=== PATIENT | female | born 1935 | race Caucasian/White ===

== ENCOUNTER 2019-01-09 16:32 | Inpatient (IN) | payer OTHER ==
[2019-01-09 17:01] LABS: Absolute Lymphocytes (CBC) 0.9 K/uL (0.7-4.9); Absolute Monocytes 0.4 K/uL (0.1-1.3); Absolute Neutrophil 6.2 K/uL (1.8-8.0); Basophils % 0.7 % (0-1.3); Hematocrit 28.4 % (36.0-45.0); Lymphocytes % 12.1 % (15.3-44.8); MPV 7.3 fL (7.6-11.3); Monocytes % 5.2 % (3.3-12.3); RBC Red Blood Cell Count 3.57 M/uL (3.86-4.86)
[2019-01-09 17:06] LABS: Protime INR 1.01
[2019-01-09] MEDS ORDERED: FENTANYL CITR 100 MCG/2 ML ONE (17:07)
[2019-01-09 17:23] LABS: BUN Blood Urea Nitrogen 12 mg/dL (7-18); Bicarbonate 27 mmol/L (21-32); Glucose Level 101 mg/dL (74-106); NT PRO-BNP 233 pg/mL (<450); Sodium Level 138 mmol/L (136-145); Troponin (Emerg Dept Use Only) < 0.02 ng/mL (0.0-0.045)
--- NOTE | 2019-01-09 18:23 | EKG ---
Test Date: 2019-01-09 Test Time: 16:53:26 [employer]: KATHERINE MEASUREMENT RESULTS: Intervals: Rate: 94 RI: 162 QRSD: 62 QT: 378 QTc: 472 [place]: P: 84 RI: 162 QRS: 78 T: 65 INTERPRETIVE STATEMENTS: Normal sinus rhythm Normal ECG Compared to ECG 09/08/2017 12:01:19 ST (T wave) deviation now present Electronically Signed On 01-09-19 18:22:39 CDT by Russ Williamson
[2019-01-09] MEDS ORDERED: ACETAMINOPHEN 500 MG TAB PO PRN (18:31)
--- NOTE | 2019-01-09 18:33 | EDPHYS ---
Physician Documentation [facility] Name: Sumaya Starr Age: 83 yrs Sex: Female : 1935 Arrival Date: 01/09/2019 Time: 16:34 Bed 19 Private MD: ED Physician Catrachito Perez HPI: 01/09 16:45 This 83 yrs old Female presents to ER via EMS with complaints of Fall Injury. cp Historical: - Allergies: 16:37 Benicar; hj 16:37 BETA-ADRENERGIC BLOCKING AGENTS; hj 16:37 Demerol; hj 16:37 Peanut; hj 16:37 Latex, Natural Rubber; hj 16:37 Adhesives; hj - Home Meds: 16:37 citalopram 10 mg tab 1 tab once daily [Active]; Lasix 20 mg Oral tab 1 tab once daily hj [Active]; Miralax 17 gram/dose Oral powd once daily [Active]; hydrocodone-acetaminophen 5-325 mg oral tab 1 tab every 4-6 hours [Active]; Zofran Oral [Active]; Klor-Con 10 10 mEq Oral TbER 1 tab once daily [Active]; Xarelto 10 mg Oral tab 1 tab once daily [Active]; Klonopin 1 mg Oral tab 1 tab nightly [Active]; melatonin 10 mg Oral tab daily [Active]; Lumigan 0.03 % ophthalmic drop 1 drop once daily [Active]; - PMHx: 16:37 AAA; Anemia; Atrial Fib; GI Bleed; Glaucoma; Hypertension; kidney infection; macular hj degeneration; UTI; - PSHx: 16:37 Carotid surgery; pyloriplasty; Cholecystectomy; hj - Immunization history:: Adult Immunizations up to date. - Social history:: Smoking status: Patient/guardian denies using tobacco, Patient/guardian denies using alcohol. - Immunization history: Last tetanus immunization: - up to date. - Ebola Screening: : Patient negative for fever greater than or equal to 101.5 degrees Fahrenheit, and additional compatible Ebola Virus Disease symptoms Patient denies exposure to infectious person Patient denies travel to an Ebola-affected area in the 21 days before illness onset. ROS: 16:50 Constitutional: Negative for body aches, chills, fever, poor PO intake. cp 16:50 Eyes: Negative for injury, pain, redness, and discharge. cp 16:50 ENT: Negative for drainage from ear(s), ear pain, sore throat, difficulty swallowing, difficulty handling secretions. 16:50 Cardiovascular: Negative for chest pain, edema, palpitations. 16:50 Respiratory: Negative for cough, shortness of breath, wheezing. 16:50 Abdomen/GI: Negative for abdominal pain, nausea, vomiting, and diarrhea, black/tarry stool, rectal bleeding. 16:50 Back: Negative for pain at rest. 16:50 MS/extremity: Positive for decreased range of motion, pain, tenderness, of the left hip, Negative for paresthesias. 16:50 Skin: Negative for rash. 16:50 Neuro: Negative for altered mental status, headache, loss of consciousness, syncope, weakness. 16:50 All other systems are negative. Exam: 17:00 Head/Face: Normocephalic, atraumatic. cp 17:00 Constitutional: The patient appears in no acute distress, alert, awake, non-diaphoretic, non-toxic, well developed, frail, in obvious pain, uncomfortable. 17:00 Eyes: Periorbital structures: appear normal, Pupils: equal, round, and reactive to light and accomodation, Extraocular movements: intact throughout, Conjunctiva: normal, no exudate, no injection, Lids and lashes: appear normal, bilaterally. 17:00 ENT: External ear(s): are unremarkable, Ear canal(s): are normal, clear, TM's: bulging, is not appreciated, bilaterally, dullness, bilaterally, erythema, is not appreciated, bilaterally, Nose: is normal, Mouth: Lips: moist, Oral mucosa: moist, Posterior pharynx: Airway: no evidence of obstruction, patent. 17:00 Neck: C-spine: vertebral tenderness, is not appreciated, crepitus, is not appreciated, ROM/movement: pain, is not appreciated, limited range of motion, is not appreciated, nuchal rigidity, is not appreciated. 17:00 Chest/axilla: Inspection: normal, Palpation: is normal, no crepitus, no tenderness. 17:00 Cardiovascular: Rate: normal, Rhythm: regular, Edema: is not appreciated, JVD: is not appreciated. 17:00 Respiratory: the patient does not display signs of respiratory distress, Respirations: normal, no use of accessory muscles, no retractions, no splinting, no tachypnea, labored breathing, is not present, Breath sounds: are clear throughout, no decreased breath sounds, no stridor, no wheezing. 17:00 Abdomen/GI: Inspection: abdomen appears normal, Bowel sounds: active, all quadrants, Palpation: abdomen is soft and non-tender, in all quadrants. 17:00 Back: vertebral tenderness, is not appreciated. 17:00 Musculoskeletal/extremity: Extremities: grossly normal except: noted in the left hip: decreased ROM, pain, tenderness, Pulses: noted to be 2+ in the right radial artery, right dorsalis pedis artery, left radial artery and left dorsalis pedis artery, Sensation intact. 17:00 Neuro: Orientation: to person, place \T\ time. Mentation: is normal, Motor: moves all fours, strength is normal, Sensation: is normal. 17:00 Skin: no rash present. 17:05 ECG was reviewed by the Attending Physician. Vital Signs: 16:38 BP 201 / 76; Pulse 97; Resp 18; Temp 98.1(TE); Pulse Ox 99% on R/A; Weight 49.9 kg; Height 5 ft. 0 in. (152.40 cm); Pain 10/10; 16:56 BP 187 / 73; Pulse 94; Resp 16 S; Pulse Ox 99% on R/A; aa5 18:19 BP 100 / 83; Pulse 88; Resp 18; Pulse Ox 100% on 2 lpm NC; hj 18:40 BP 191 / 80; Pulse 94; Resp 18; Pulse Ox 100% on 2 lpm NC; hj 20:45 BP 156 / 77; Pulse 95; Resp 18; Temp 97.5(TE); Pulse Ox 96% on 2 lpm NC; Pain 6/10; ed1 16:38 Body Mass Index 21.48 (49.90 kg, 152.40 cm) Daniel Coma Score: 16:41 Eye Response: spontaneous(4). Verbal Response: oriented(5). Motor Response: obeys commands(6). Total: 15. Trauma Score (Adult): 16:41 Eye Response: spontaneous(1); Verbal Response: oriented(1); Motor Response: obeys commands(2); Systolic BP: > 89 mm Hg(4); Respiratory Rate: 10 to 29 per min(4); Milton Score: 15; Trauma Score: 12 MDM: 16:38 Patient medically screened. cp 17:00 Differential diagnosis: closed head injury, contusion, fracture, multiple trauma, cp dislocation. 18:15 Data reviewed: vital signs, nurses notes, lab test result(s), EKG, radiologic studies, cp plain films. Test interpretation: by ED physician or midlevel provider: ECG, plain radiologic studies, xrays of left femur show subcapital fracture. 18:16 Physician consultation: Mago Srivastava MD was called at 18:16, was contacted at 18:16, cp regarding admission, to the telemetry unit. patient's condition. 18:18 Physician consultation: Jerald Willams MD was called at 18:18, was contacted at 18:18, cp regarding consult, patient's condition, would like admission per Dr. Mago Srivastava MD. 01/09 16:37 Order name: Basic Metabolic Panel; Complete Time: 17:30 cp 01/09 17:31 Interpretation: Normal except: GFR 63. 01/09 16:37 Order name: CBC with Diff; Complete Time: 17:30 cp 01/09 17:30 Interpretation: Normal except: RBC 3.57; HGB 9.2; HCT 28.4; MCV 79.3; MCH 25.7; RDW cp 15.8; MPV 7.3; MICHELLE% 81.0; LYM% 12.1. 01/09 16:37 Order name: NT PRO-BNP; Complete Time: 17:30 cp 01/09 16:37 Order name: PT-INR; Complete Time: 17:30 cp 01/09 16:37 Order name: Troponin (emerg Dept Use Only); Complete Time: 17:30 cp 01/09 16:37 Order name: Ptt, Activated; Complete Time: 17:30 cp 01/09 16:37 Order name: XRAY Chest (1 view); Complete Time: 18:48 cp 01/09 16:37 Order name: XRAY Pelvis; Complete Time: 18:48 cp 01/09 16:37 Order name: XRAY Femur LEFT; Complete Time: 18:48 cp 01/09 16:37 Order name: CT Traumagram (Head C Spine CAP W Con); Complete Time: 18:48 cp 01/09 18:14 Order name: XRAY Hip LEFT 2 view cp 05/15 19:26 Order name: RAD; Complete Time: 21:03 EDMS 01/09 20:00 Order name: Magnesium; Complete Time: 21:03 EDMS 01/09 16:37 Order name: EKG; Complete Time: 16:43 cp 01/09 16:37 Order name: Cardiac monitoring; Complete Time: 16:44 cp 01/09 16:37 Order name: EKG - Nurse/Tech; Complete Time: 16:52 cp 01/09 16:37 Order name: IV Saline Lock; Complete Time: 16:52 cp 01/09 16:37 Order name: Labs collected and sent; Complete Time: 16:52 cp 01/09 16:37 Order name: O2 Per Protocol; Complete Time: 16:43 cp 01/09 16:37 Order name: O2 Sat Monitoring; Complete Time: 16:43 cp 01/09 16:38 Order name: Chiu: if hip fractured; Complete Time: 21:02 cp 01/09 18:37 Order name: CONS Physician Consult EDMS EC:05 Rate is 94 beats/min. Rhythm is regular. NJ interval is normal. QRS interval is normal. cp QT interval is normal. Interpreted by me. Reviewed by me. Administered Medications: 16:55 Drug: fentaNYL (PF) 25 mcg Route: IVP; Site: right antecubital; aa5 17:20 Follow up: Response: No adverse reaction; Pain is decreased hj 17:26 Drug: fentaNYL (PF) 25 mcg Route: IVP; Site: right antecubital; hj 17:45 Follow up: Response: No adverse reaction; Pain is decreased hj 18:35 Drug: fentaNYL (PF) 25 mcg Route: IVP; Site: right antecubital; hj 18:35 Follow up: Response: No adverse reaction hj 18:37 Follow up: Response: No adverse reaction; Pain is decreased hj 19:37 Drug: morphine 2 mg {Note: Given per admission orders.} Route: IVP; Site: right ed1 antecubital; 21:02 Follow up: Response: No adverse reaction; Pain is unchanged, physician notified ed1 20:30 Drug: LORazepam 0.5 mg {Note: Per admission orders.} Route: IVP; Site: right ed1 antecubital; 21:02 Follow up: Response: No adverse reaction; Anxiety decreased ed1 Disposition: 01/09/19 18:33 Hospitalization ordered by Mago Srivastava for Inpatient Admission. Preliminary diagnosis are Fall on same level from slipping, tripping and stumbling, Left hip fracture. - Bed requested for Telemetry/MedSurg (Inpatient). - Status is Inpatient Admission. ed1 - Condition is Stable. - Problem is new. - Symptoms have improved. UTI on Admission? No Addendum: 01/14/2019 07:57 Co-signature as Attending Physician, Catrachito Perez MD. r n Signatures: Dispatcher [employer] EDMS Catrachito Perez MD MD rn Calderon, Audri RN RN aa5 Marti Castillo RN RN ed1 Luan Frias RN RN Nabor Sandoval PA PA Jordyn Parekh mw2 Corrections: (The following items were deleted from the chart) 01/09 19:33 18:33 Hospitalization Ordered by Mago Srivastava MD for Inpatient Admission. Preliminary mw2 diagnosis is Fall on same level from slipping, tripping and stumbling; Left hip fracture. Bed requested for Telemetry/MedSurg (Inpatient). Status is Inpatient Admission. Condition is Stable. Problem is new. Symptoms have improved. UTI on Admission? No. cp 21:22 19:33 01/09/2019 18:33 Hospitalization Ordered by Mago Srivastava MD for Inpatient ed1 Admission. Preliminary diagnosis is Fall on same level from slipping, tripping and stumbling; Left hip fracture. Bed requested for Telemetry/MedSurg (Inpatient). Status is Inpatient Admission. Condition is Stable. Problem is new. Symptoms have improved. UTI on Admission? No. mw2
--- NOTE | 2019-01-09 18:33 | ER ---
Nurse's Notes [facility] Name: Sumaya Starr Age: 83 yrs Sex: Female : 1935 Arrival Date: 01/09/2019 Time: 16:34 Bed 19 Private MD: Diagnosis: Fall on same level from slipping, tripping and stumbling;Left hip fracture Presentation: 01/09 16:35 Presenting complaint: EMS states: from home, pt tripped and fell and hurt her L hip and hj L upper leg; denies hitting head and LOC; unable to extend L leg; morphine 4 mg given at 1535; 20 g R AC;. Transition of care: patient was not received from another setting of care. Onset of symptoms was January 09, 2019. Risk Assessment: Do you want to hurt yourself or someone else? Patient reports no desire to harm self or others. Initial Sepsis Screen: Does the patient meet any 2 criteria? No. Patient's initial sepsis screen is negative. Does the patient have a suspected source of infection? No. Patient's initial sepsis screen is negative. Care prior to arrival: None. 16:35 Method Of Arrival: EMS: [facility] 16:35 Acuity: MARY 4 hj 16:35 Mechanism of Injury: Fall from standing position. Trauma event details: Injury occurred hj in the [facility], Injury occurred: at home. Injury occurred: January 09, 2019 Injury occurred at: 15:45. Triage Assessment: 16:41 General: Appears in no apparent distress. uncomfortable, Behavior is cooperative, hj appropriate for age, anxious. Pain: Complains of pain in L lip, L upper extremity. Trauma Activation: Not Applicable Physician: ED Physician; Name: ; Notified At: ; Arrived At: Physician: General Surgeon; Name: ; Notified At: ; Arrived At: Physician: Radiology; Name: ; Notified At: ; Arrived At: Physician: Respiratory; Name: ; Notified At: ; Arrived At: Physician: Lab; Name: ; Notified At: ; Arrived At: Historical: - Allergies: 16:37 Benicar; hj 16:37 BETA-ADRENERGIC BLOCKING AGENTS; hj 16:37 Demerol; hj 16:37 Peanut; hj 16:37 Latex, Natural Rubber; hj 16:37 Adhesives; hj - Home Meds: 16:37 citalopram 10 mg tab 1 tab once daily [Active]; Lasix 20 mg Oral tab 1 tab once daily hj [Active]; Miralax 17 gram/dose Oral powd once daily [Active]; hydrocodone-acetaminophen 5-325 mg oral tab 1 tab every 4-6 hours [Active]; Zofran Oral [Active]; Klor-Con 10 10 mEq Oral TbER 1 tab once daily [Active]; Xarelto 10 mg Oral tab 1 tab once daily [Active]; Klonopin 1 mg Oral tab 1 tab nightly [Active]; melatonin 10 mg Oral tab daily [Active]; Lumigan 0.03 % ophthalmic drop 1 drop once daily [Active]; - PMHx: 16:37 AAA; Anemia; Atrial Fib; GI Bleed; Glaucoma; Hypertension; kidney infection; macular hj degeneration; UTI; - PSHx: 16:37 Carotid surgery; pyloriplasty; Cholecystectomy; hj - Immunization history:: Adult Immunizations up to date. - Social history:: Smoking status: Patient/guardian denies using tobacco, Patient/guardian denies using alcohol. - Immunization history: Last tetanus immunization: - up to date. - Ebola Screening: : Patient negative for fever greater than or equal to 101.5 degrees Fahrenheit, and additional compatible Ebola Virus Disease symptoms Patient denies exposure to infectious person Patient denies travel to an Ebola-affected area in the 21 days before illness onset. Screenin:39 Abuse screen: Denies threats or abuse. Denies injuries from another. Nutritional hj screening: No deficits noted. Tuberculosis screening: No symptoms or risk factors identified. Fall Risk Fall in past 12 months (25 points). Primary Survey: 16:30 NO uncontrolled hemorrhage observed. A: The patient is alert. Airway: patent, Oxygen hj via nasal cannula at 2 liters per minute. Oral cavity: clear, gag reflex present, Trachea midline. Breathing/Chest: Respiratory pattern: regular, Respiratory effort: spontaneous, unlabored, Breath sounds: clear, Chest inspection: symmetrical rise and fall of the chest. Circulation: Cardiac rhythm: sinus rhythm Heart tones present. Pulses: Skin color: pink, Skin temperature: warm, dry. Disability Alert. Exposure/Environment: All clothing and personal items were removed. Forensic evidence collection is not deemed to be indicated at this time. Items placed in patient belonging bag. There is no evidence of uncontrolled external bleeding. A warming method has been applied: A warm blanket has been provided to the patient. 16:41 Reassessment Airway Airway Patent Oxygen Nasal cannula Oral cavity Clear +Gag reflex hj Trachea Midline Breathing/Chest Respiratory pattern Regular Respiratory effort Spontaneous Unlabored Breath sounds Clear Chest inspection Symmetrical Circulation Heart rhythm Sinus rhythm Heart tones Present Pulses Palpable Color [place] Temperature Warm Dry Disability Alert. 17:57 Reassessment Airway Airway Patent Oxygen Nasal cannula Oral cavity Clear +Gag reflex hj Trachea Midline Breathing/Chest Respiratory pattern Regular Respiratory effort Spontaneous Unlabored Breath sounds Clear Chest inspection Symmetrical Circulation Heart rhythm Sinus rhythm Heart tones Present Pulses Palpable Color [place] Temperature Warm Dry Disability Alert. Secondary Survey: 16:45 HEENT: Head No injury/deformity Face No injury/deformity Eyes: No injury or deformity hj noted. Ears: clear Nose: clear. Gastrointestinal: Abdomen is soft, Bowel sounds present in all quadrants. Palpation No deficit noted. : No signs and/or symptoms were reported regarding the genitourinary system. Musculoskeletal: Reports pain in left knee and left hip. Assessment: 16:37 General: Appears in no apparent distress. uncomfortable, slender, Behavior is hj cooperative, appropriate for age, anxious, crying. Pain: Complains of pain in L hip, L lower extremity. Neuro: Level of Consciousness is awake, alert, obeys commands, Oriented to person, place, time, situation, Appropriate for age. EENT: No signs and/or symptoms were reported regarding the EENT system. Cardiovascular: Capillary refill < 3 seconds Patient's skin is warm and dry. Respiratory: Airway is patent Respiratory effort is even, unlabored, Respiratory pattern is regular, symmetrical. GI: No signs and/or symptoms were reported involving the gastrointestinal system. : No signs and/or symptoms were reported regarding the genitourinary system. Derm: No signs and/or symptoms reported regarding the dermatologic system. Musculoskeletal: Range of motion: limited in left hip and left knee Reports pain in L hip, L lower extremity. 17:05 Reassessment: Patient and/or family updated on plan of care and expected duration. Pain hj level reassessed. Patient is alert, oriented x 3, equal unlabored respirations, skin warm/dry/pink. provider in room with daughter for POC;. 17:26 Reassessment: wheeled to XRAY;. hj 17:52 Reassessment: still in XRAY and CT;. hj 18:34 Reassessment: Patient and/or family updated on plan of care and expected duration. Pain hj level reassessed. Patient is alert, oriented x 3, equal unlabored respirations, skin warm/dry/pink. per family request, pt to be placed near the nurses station;. 18:45 Reassessment: awaiting for latex free brown and supplies from milk house worker;. hj Vital Signs: 16:38 BP 201 / 76; Pulse 97; Resp 18; Temp 98.1(TE); Pulse Ox 99% on R/A; Weight 49.9 kg; hj Height 5 ft. 0 in. (152.40 cm); Pain 10/10; 16:56 BP 187 / 73; Pulse 94; Resp 16 S; Pulse Ox 99% on R/A; aa5 18:19 BP 100 / 83; Pulse 88; Resp 18; Pulse Ox 100% on 2 lpm NC; hj 18:40 BP 191 / 80; Pulse 94; Resp 18; Pulse Ox 100% on 2 lpm NC; hj 20:45 BP 156 / 77; Pulse 95; Resp 18; Temp 97.5(TE); Pulse Ox 96% on 2 lpm NC; Pain 6/10; ed1 16:38 Body Mass Index 21.48 (49.90 kg, 152.40 cm) hj Daniel Coma Score: 16:41 Eye Response: spontaneous(4). Verbal Response: oriented(5). Motor Response: obeys hj commands(6). Total: 15. Trauma Score (Adult): 16:41 Eye Response: spontaneous(1); Verbal Response: oriented(1); Motor Response: obeys hj commands(2); Systolic BP: > 89 mm Hg(4); Respiratory Rate: 10 to 29 per min(4); Baldwin Score: 15; Trauma Score: 12 ED Course: 16:34 Patient arrived in ED. hj 16:35 Nabor Mcadams PA is PHCP. cp 16:35 Catrachito Perez MD is Attending Physician. cp 16:36 Triage completed. hj 16:37 Patient has correct armband on for positive identification. Bed in low position. Call hj light in reach. Side rails up X 1. Adult w/ patient. 16:37 Maintain EMS IV. Dressing intact. Good blood return noted. Site clean \T\ dry. Gauge \T\ hj site: 20g R AC. 16:41 Arm band placed on right wrist. hj 16:43 Patient maintains SpO2 saturation greater than 95% on room air. hj 16:49 Radiology exam delayed due to lab results not completed at this time. (BUN/Creatinine) sj IV insertion attempt and/or patient not having appropriate IV at this time. 16:52 Luan Frias, RN is Primary Nurse. hj 16:55 Thermoregulation: warm blanket given to patient. hj 16:55 EKG done, by tomographic tech. reviewed by Nabor FRAZIER. sm3 18:02 XRAY Chest (1 view) In Process Unspecified. EDMS 18:02 XRAY Pelvis In Process Unspecified. EDMS 18:02 XRAY Femur LEFT In Process Unspecified. EDMS 18:14 CT Traumagram (Head C Spine CAP W Con) In Process Unspecified. EDMS 18:30 Mago Srivastava MD is Hospitalizing Provider. cp 19:06 Primary Nurse role handed off by Luan Frias, LORETTA ed1 19:06 Marti Castillo, LORETTA is Primary Nurse. ed1 19:29 Notified the admitting physician of Pt request for medication for muscle spasms. No new ed1 orders received at this time. 19:41 Attempted to insert latex free 16Fr, attempt unsuccessful. Cleaned perineal area with lt1 wipes and positioned the patient for comfort. 20:44 Brown cath inserted, using sterile technique, 18 Fr., by ED staff, balloon inflated, ed1 returned clear yellow urine. Patient tolerated well. 21:07 No provider procedures requiring assistance completed. Patient admitted, IV remains in ed1 place. intact, No redness/swelling at site. Administered Medications: 16:55 Drug: fentaNYL (PF) 25 mcg Route: IVP; Site: right antecubital; aa5 17:20 Follow up: Response: No adverse reaction; Pain is decreased hj 17:26 Drug: fentaNYL (PF) 25 mcg Route: IVP; Site: right antecubital; hj 17:45 Follow up: Response: No adverse reaction; Pain is decreased hj 18:35 Drug: fentaNYL (PF) 25 mcg Route: IVP; Site: right antecubital; hj 18:35 Follow up: Response: No adverse reaction hj 18:37 Follow up: Response: No adverse reaction; Pain is decreased 19:37 Drug: morphine 2 mg {Note: Given per admission orders.} Route: IVP; Site: right ed1 antecubital; 21:02 Follow up: Response: No adverse reaction; Pain is unchanged, physician notified ed1 20:30 Drug: LORazepam 0.5 mg {Note: Per admission orders.} Route: IVP; Site: right ed1 antecubital; 21:02 Follow up: Response: No adverse reaction; Anxiety decreased ed1 Output: 21:13 Urine: 650ml (Brown); Total: 650ml. ed1 Outcome: 18:33 Decision to Hospitalize by Provider. cp 18:41 Patient's length of stay was not longer than 2 hours. hj 21:12 Admitted to Med/surg accompanied by tech, family with patient, via stretcher, room 209, ed1 with chart, Report called to LORETTA Stewart 21:12 Condition: stable 21:12 Discharge instructions given to patient, family, Instructed on the need for admit, Demonstrated understanding of instructions. 21:22 Patient left the ED. ed1 Signatures: Dispatcher [employer] Hodan Miller Audri, RN RN aa5 Marti Castillo RN RN ed1 Luan Frias RN RN hj Page, Corey, PA PA Debbie Cristina 3 Heidi Ramos lt1 Corrections: (The following items were deleted from the chart) 16:39 16:35 Presenting complaint: EMS states: from home, pt tripped and fell and hurt her L hj hip and L upper leg; denies hitting head and LOC; unable to extend L leg; hj
--- NOTE | 2019-01-09 18:40 | RAD REPORT ---
EXAM DESCRIPTION: CT - Head C Spine Cap Sandy Crawford - 01/09/2019 6:14 pm CLINICAL HISTORY: Head and neck injury with chest and abdominal pain status post fall. Head and neck pain . TECHNIQUE: Computed axial tomography of the head and cervical spine was obtained Computed axial tomography of the chest, abdomen and pelvis was obtained. 100 cc Isovue-300 was given intravenously coronal and sagittal reconstruction was performed. All CT scans are performed using dose optimization technique as appropriate and may include automated exposure control or mA/KV adjustment according to patient size. COMPARISON: CT head, C-spine, abdomen and pelvis 2017 FINDINGS: An intracranial bleed is not seen. The ventricles are normal in caliber. An extra-axial fl uid collection is not noted. Moderate low-density areas within periventricular, deep and subcortical white matter likely represent ischemic changes secondary to small vessel disease A cervical fracture is not seen. No dislocation is seen. Spondylosis involves the cervical spine A mediastinal hematoma is not noted. A pleural effusion is not present. A lung contusion is not seen. Cholecystectomy Dilatation of the biliary tree is without significant change. Mild dilatation of the pancreatic duct is also stable. Unchanged pancreatic calcifications Spleen, adrenals, kidneys and bladder demonstrate no significant abnormality. Left subcapital femoral fracture is mildly displaced. Old moderate compression fracture L2 vertebral body Aortobifemoral graft IMPRESSION: 1. No acute intracranial abnormality is seen 2. A cervical fracture is not visualized. If the patient continues have symptoms to suggest intracran ial/spinal cord pathology then MRI would be recommended. 3. No acute traumatic injury involving the chest, or abdomen 4. Mildly displaced left subcapital femoral fracture
--- NOTE | 2019-01-09 18:40 | RAD REPORT ---
EXAM DESCRIPTION: RAD - Pelvis - 01/09/2019 6:01 pm CLINICAL HISTORY: Left hip pain status post fall FINDINGS: Mildly displaced left subcapital femoral fracture. No dislocation
--- NOTE | 2019-01-09 18:41 | RAD REPORT ---
EXAM DESCRIPTION: RAD - Femur Left - 01/09/2019 6:01 pm CLINICAL HISTORY: Left leg pain FINDINGS: Mildly displaced left subcapital femoral fracture. No dislocation . Osteoporosis
--- NOTE | 2019-01-09 18:42 | RAD REPORT ---
EXAM DESCRIPTION: Vishnu Single View01/09/2019 6:01 pm CLINICAL HISTORY: Chest pain COMPARISON: August 2017 FINDINGS: The lungs appear clear of acute infiltrate. The heart is mildly enlarged IMPRESSION: No acute abnormalities displayed
[2019-01-09] MEDS ORDERED: Mastisol Adhesive Liq ONE (18:51)
--- NOTE | 2019-01-09 19:25 | RAD REPORT ---
EXAM DESCRIPTION: RAD - Hip Left 2 View - 01/09/2019 7:18 pm CLINICAL HISTORY: Left hip pain status post injury FINDINGS: A mildly displaced left subcapital femoral fracture. No dislocation
[2019-01-09] MEDS ORDERED: MORPHINE 2 MG/ML SYR ONE (19:46)
[2019-01-09] MEDS ORDERED: LORazepam 2 MG/ML VIAL IV ONE (19:53)
--- NOTE | 2019-01-09 20:00 | P.HP ---
Certification for Inpatient Patient admitted to: Inpatient With expected LOS: >2 Midnights Practitioner: I am a practitioner with admitting privileges, knowledge of patient current condition, hospital course, and medical plan of care. Services: Services provided to patient in accordance with Admission requirements found in Title 42 Section 412.3 of the Code of Federal Regulations Patient History Date of Service: 01/09/19 Reason for admission: hip fracture History of Present Illness: Ms Starr is an 83 years old woman with multiple medical problems, including AAA repair, bilateral endarterectomy, A.Fib on chronic anticoagulation with Xarelto, peripheral artery disease, who unfortunately sustained a fall from ground level this afternoon at home. The patient says that she tripped and fell. She did not hit her head or had LOC. She land over her left side. She denied dizziness or palpitations prior the fall. Images are consistent with left subcapital femoral fracture. She is painful and is complaining of positional muscle cramps. Allergies olmesartan [From Benicar] Allergy (Unknown, Verified 11/21/16 16:36) Anaphylaxis peanut Allergy (Unknown, Verified 11/21/16 16:36) Anaphylaxis Beta-Blockers (Beta-Adrenergic Bloc Allergy (Verified 11/21/16 16:36) Anaphylaxis latex Allergy (Verified 11/21/16 16:36) Hives adhesive tape Adverse Reaction (Verified 11/21/16 16:35) red raw skin Home medications list reviewed: Yes Home Medications: Bromfenac Sodium [Prolensa] 1 drop EACH EYE DAILY PRN 10/25/16 Furosemide 20 mg PO DAILY PRN 10/25/16 Brinzolamide/Brimonidine Tart [Simbrinza 1%-0.2% Eye Drops] 1 gtt EACH EYE BID 10/26/16 Pravastatin Sodium [Pravachol] 40 mg PO BEDTIME 10/26/16 Vit A,C & E/Lutein/Minerals [Ocuvite Tablet] 1 tab PO DAILY 10/26/16 Rivaroxaban [Xarelto] 10 mg PO DAILY #30 tablet 05/20/17 Bimatoprost [Lumigan Opthalmic Drops*] 1 gtt OPTH BEDTIME 09/05/17 clonazePAM [Klonopin] 1 tab PO TID 09/05/17 Docusate [Colace Cap*] 100 mg PO BID #60 cap 09/11/17 Fentanyl [Duragesic] 25 mcg TD Q72H #10 patch.td72 09/11/17 Furosemide [Lasix*] 20 mg PO DAILY #30 tab 09/11/17 Gabapentin [Neurontin*] 100 mg PO BID #60 cap 09/11/17 Hydrocodone Bit/Acetaminophen [[place] 10-325 Tablet] 1 each PO Q4H PRN #40 tablet 09/11/17 Rivaroxaban [Xarelto*] 10 mg PO DAILY tablet 09/11/17 Smz./Tmp. 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 She does not work. - Family History Mother -: Heart disease Notes: from heart attack Father -: Other (see notes) Notes: from bursted aneurism - Social History Smoking Status: Current every day smoker Counseled patient to stop smoking for: less than 10 minutes Smoking therapy provided: Yes Patient receptive to therapy: Yes Alcohol use: No CD- Drugs: No Caffeine use: Yes Review of Systems 10-point ROS is otherwise unremarkable Physical Examination - Physical Exam General: Alert, In no apparent distress HEENT: Atraumatic, PERRLA, Mucous membr. moist/pink, EOMI, Sclerae nonicteric Neck: Supple, 2+ carotid pulse no bruit, No LAD, Without JVD or thyroid abnormality Respiratory: Clear to auscultation bilaterally, Normal air movement Cardiovascular: Normal S1 S2, Irregular heart rate/rhythm Gastrointestinal: Normal bowel sounds, No tenderness Musculoskeletal: Tenderness (left leg, hip) Integumentary: No rashes Neurological: Normal speech, Normal strength at 5/5 x4 extr, Normal tone, Normal affect Lymphatics: No axilla or inguinal lymphadenopathy - Studies Laboratory Data (last 24 hrs) 01/09/19 16:50: PT 11.9, INR 1.01, APTT 35.5 01/09/19 16:50: WBC 7.6, Hgb 9.2 L, Hct 28.4 L, Plt Count 244 01/09/19 16:50: Sodium 138, Potassium 4.0, BUN 12, Creatinine 0.86, Glucose 101 Assessment and Plan - Problems (Diagnosis) (1) Hip fracture Current Visit: Yes Status: Acute Qualifiers: Encounter type: initial encounter Fracture type: closed Laterality: left Qualified Code(s): S72.002A - Fracture of unspecified part of neck of left femur, initial encounter for closed fracture (2) Fall Onset Date: 10/27/16 Current Visit: No Status: Acute Qualifiers: Encounter type: initial encounter (3) Anemia Current Visit: No Status: Chronic Qualifiers: Anemia type: iron deficiency Iron deficiency anemia type: chronic blood loss Qualified Code(s): D50.0 - Iron deficiency anemia secondary to blood loss (chronic) (4) Atrial fibrillation Onset Date: 10/27/16 Current Visit: No Status: Chronic Qualifiers: Atrial fibrillation type: chronic Qualified Code(s): I48.2 - Chronic atrial fibrillation (5) Hypertension Onset Date: 10/27/16 Current Visit: No Status: Chronic Qualifiers: Hypertension type: essential hypertension - Plan Ms Starr will be admitted to the hospital due to mildly displaced left subcapital femoral fracture. Will Hold Xarelto, keep her NPO after MN, order IV symptomatic medication for pain, consult Orthopedic surgeon and Cardiology team for surgical clearance. - Advance Directives Does patient have a Living Will: No Does patient have a Durable POA for Healthcare: Yes - Code Status/Comfort Care Code Status Assessed: Yes Code Status: Full Code
[2019-01-09] MEDS ORDERED: LORazepam 2 MG/ML VIAL ONE (20:34)
[2019-01-09 22:07] VITALS: BMI 21.9
[2019-01-09] MEDS: MORPHINE 2 MG/ML SYR IV PRN (22:23)
[2019-01-09] MEDS: NA CHLORIDE 0.9% 1,000 ML IV SCH (22:24)
[2019-01-10] MEDS: MORPHINE 2 MG/ML SYR IV PRN ×4 (02:17→20:18)
[2019-01-10] MEDS ORDERED: KETOROLAC 30 MG/ML INJ IV ONE (06:00)
[2019-01-10 06:38] LABS: Absolute Lymphocytes (CBC) 0.9 K/uL (0.7-4.9); Absolute Monocytes 0.6 K/uL (0.1-1.3); Absolute Neutrophil 4.4 K/uL (1.8-8.0); Basophils % 0.9 % (0-1.3); Eosinophils % 2.4 % (0-4.4); Hematocrit 26.5 % (36.0-45.0); Lymphocytes % 14.5 % (15.3-44.8); MPV 7.6 fL (7.6-11.3); Monocytes % 10.3 % (3.3-12.3); RBC Red Blood Cell Count 3.27 M/uL (3.86-4.86)
[2019-01-10 07:18] LABS: Bilirubin Total 0.7 mg/dL (0.2-1.0); Potassium 4.2 mmol/L (3.5-5.1); Protein, Total 6.4 g/dL (6.4-8.2)
[2019-01-10] MEDS: NA CHLORIDE 0.9% 1,000 ML IV SCH ×2 (08:27→15:00)
[2019-01-10] MEDS: NICOTINE 14 MG/PAT TD SCH (08:29)
[2019-01-10] MEDS ORDERED: PROPOFOL 200 MG/20 ML VIAL IV ONE (12:36)
[2019-01-10] MEDS ORDERED: FENTANYL CITR 100 MCG/2 ML ONE (12:37)
[2019-01-10] MEDS ORDERED: LIDOCAINE 2% MPF 5 ML VIAL ONE (12:37)
[2019-01-10] MEDS ORDERED: ROCURONIUM 50 MG/5 ML VIAL IV ONE (12:38)
[2019-01-10] MEDS ORDERED: ONDANSETRON 4 MG/2 ML VIAL ONE (12:39)
[2019-01-10] MEDS ORDERED: BUPIVACA 0.5%/EPI 0.0005%/PF 10 ML VIAL ONE (12:45)
[2019-01-10] MEDS ORDERED: CEFAZOLIN/SWI 1gm 1 GM/10 ML SYR ONE (12:58)
--- NOTE | 2019-01-10 13:21 | ECHO ---
HEIGHT: 5 ft 0 in WEIGHT: 112 lb 4.8 oz DATE OF STUDY: 01/10/[address]: Azar Carrizales MD 2-DIMENSIONAL: YES M.MODE: YES DOPPLER: YES COLOR FLOW: YES TDS: PORTABLE: DEFINITY: BUBBLE STUDY: DIAGNOSIS: PREOP/ABNORMAL EKG CARDIAC HISTORY: CATHERIZATION: YES SURGERY: PROSTHETIC VALVE: PACEMAKER: MEASUREMENTS (cm) DIASTOLIC (NORMALS) SYSTOLIC (NORMALS) IVSd 0.9 (0.6-1.2) LA Diam 3.6 (1.9-4.0) LVEF 79% LVIDd 3.8 (3.5-5.7) LVIDs 2.0 (2.0-3.5) %FS 47% LVPWd 1.0 (0.6-1.2) Ao Diam 3.2 (2.0-3.7) 2 DIMENSIONAL ASSESSMENT: RIGHT ATRIUM: NORMAL LEFT ATRIUM: NORMAL RIGHT VENTRICLE: NORMAL LEFT VENTRICLE: NORMAL TRICUSPID VALVE: NORMAL MITRAL VALVE: MITRAL ANNULAR CALCIFICATION PULMONIC VALVE: NORMAL AORTIC VALVE: SCLEROSIS PERICARDIAL EFFUSION: NONE AORTIC ROOT: LEFT VENTRICULAR WALL MOTION: NORMAL DOPPLER/COLOR FLOW: MILD TRICUSPID REGURGITATION AND MITRAL REGURGITATION. COMMENTS: MILD TRICUSPID REGURGITATIOIN AND MITRAL REGURGITATION. MITRAL ANNULAR CALCIFICATION. AORTIC SCLEROSIS WITH NO STENOSIS. NORMAL LEFT VENTRICULAR SIZE AND FUNCTION. TECHNOLOGIST: KELBY MCCLENDON
--- NOTE | 2019-01-10 13:50 | P.PN ---
Date of Service: 01/10/19 Patient was brought down to PACU for surgery this afternoon. Prior to surgery, it was noted that the set of instruments to complete the surgery was missing necessary items to complete the case. The case was cancelled and rescheduled for tomorrow, 01/11/2019, morning. A new set will be brought in from [place]. I discussed with the patient and her daughter and they expressed understanding.
--- NOTE | 2019-01-10 16:36 | PN ---
Date of Progress Note: 01/10/2019 Subjective: Patient was seen and examined. Chart reviewed and case discussed with RN, Dr. Willams, as well as, Dr. Carrizales. The patient is scheduled for surgery today. Dr. Carrizales has cleared the patie nt for surgery. The patient does report some pain, controlled with medications. Code Status: Full. Physical Examination: Vital Signs: Temperature 97.6, heart rate 84, blood pressure 147/67, respirations 16, O2 is 97% on r oom air. General: Awake, alert, and oriented x3. Elderly female in mild distress due to pain, frail. CV: S1, S2. Currently, in regular rate and rhythm. Peripheral pulses weak. Respiratory: Moving air well bilaterally, no wheezing. Gastrointestinal: Abdomen is soft, nontender , nondistended. Positive bowel sounds. Extremities: No clubbing, cyanosis, or edema. Musculoskeletal: Left lower extremity shortened, rotated. Neurologic: Nonfocal. Laboratory Data: Sodium 141, potassium 4.2, chloride 107, CO2 28, BUN 10, creatinine 0.73, glucose 9 8, calcium 8.2. WBC 6.2, H and H 8.4 and 26.5, platelets 209, neutrophils 71%. Assessment And Plan: An 83-year-old female with; 1.Hip fracture on the left, closed initial encounter. The patient will be going for surgery today b y Dr. Willams's. I spoke with Dr. Carrizales. She has reviewed the patient and has cleared the patient fo r surgery. 2.Status post fall, mechanical. We will continue with PT after surgery. 3.Iron deficiency anemia due to chronic blood loss. The patient has hemoglobin dropped to 8.2. We will continue to monitor and transfuse for hemoglobin less than 7. 4.Atrial fibrillation, intermittent, currently in sinus. The patient is on Xarelto, last dose was a pproximately 36 hours ago. We will hold for now due to surgery. 5.Essential hypertension, stable. Resume home medications as appropriate. 6.History of AAA repair. 7.History of right carotid endarterectomy. 8.Peripheral vascular disease, stable. 9.Mixed hyperlipidemia, stable. 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 11.Osteoporosis. Plan: 1.Anticipate surgery this afternoon. The patient will likely need rehab shelter facility po stoperatively. SA/MODL Voice ID: [id number] Report ID: [id number]
--- NOTE | 2019-01-10 17:11 | CON ---
Date of Consultation: 01/10/2019 Reason For Consultation: Left hip pain. History Of Present Illness: Ms. Starr is an 83-year-old female with past medical history including atrial fibrillation, hypertension, and peripheral vascular disease, who presented to the ER after ramirez taining a fall onto her left side with subsequent left hip pain and inability to bear weight. X-rays demonstrated a mildly displaced left femoral neck fracture. Prior to the fall the patient reports m obilizing with a cane on occasion. She reports pain in her left hip at this time. She denies any ot her musculoskeletal complaints at this time. Review of Systems: As above, otherwise negative. Past Medical History: Includes atrial fibrillation, hypertension, hyperlipidemia, carotid arterial d isease and peripheral vascular disease, history of AAA, and GERD. Past Surgical History: Includes hysterectomy, cholecystectomy, oral surgery, appendectomy, AAA repai r, right carotid endarterectomy, palatoplasty, and AAA repair. Medications: Please see medication reconciliation form. Allergies: BENICAR, PEANUTS, BETA BLOCKERS, LATEX, AND ADHESIVE TAPE. Social History: Denies drug use. Reports is an everyday smoker. Denies alcohol use. Lives by hers elf at home. Physical Examination: General: No apparent distress. HEENT: Normocephalic, atraumatic. Neck: Supple. Cardiovascular: Brisk cap refill to all digits. Chest: Nonlabored breathing. Abdomen: Nondistended. Psychiatric: Responds to exam. Musculoskeletal: Bilateral upper extremities functional range of motion without pain. No gross defo rmities. No obvious dislocations. Right lower extremity functional range of motion without pain. N o gross deformities. No obvious dislocations. Left lower extremity, she has range of motion of her left hip. Tenderness to palpation of the left hip. No tenderness to palpation of the knee, tibia, o r ankle. Neurovascularly intact distally. X-rays: X-rays of the left hip demonstrate a mildly displaced valgus impacted left femoral neck frac ture with a stable fracture pattern. Assessment And Plan: Ms. Starr is an 83-year-old female with a left femoral neck fracture. I discu ssed with the patient and her daughter at length risks and benefits associated with operative and non operative treatment. She expressed understanding. Given stable fracture pattern as well as minimal displacement, we will proceed with closed reduction and percutaneous screw fixation of the left hip. Some benefits associated with procedure including pain, bleeding, infection, failure to heal, and le g length discrepancy were discussed with the patient and daughter at length. They expressed understa nding. We will proceed with surgery later today after clearance with Cardiology. SEBASTIEN/SHANNON Voice ID: [id number] Report ID: [id number]
[2019-01-10] MEDS: ONDANSETRON 4 MG/2 ML VIAL IV PRN (20:18)
--- NOTE | 2019-01-10 23:47 | CON ---
Date of Consultation: 01/10/[address] to Dr. Srivastava's service on 01/09/2019. The patient was seen on 01/10/2019. Reason For Consultation: Cardiac clearance for hip fractures. History Of Present Illness: Ms. Starr is an 83-year-old woman. She sees Dr. Williamson. She has a demetrio y complicated past cardiovascular history, but is not really having any cardiac symptoms right now. She came in with a hip fracture after a fall. She denied chest pain, shortness of breath, nausea, vo miting, diaphoresis, PND, orthopnea, pedal edema, palpitations, or syncope. Review of Systems: Positive for fatigue. Allergies: INCLUDE OLMESARTAN, PEANUT, AND BETA-MARK. Social History: Negative. Family History: Noncontributory. Medications: At home include Lasix, Xarelto, losartan, Celexa, potassium, and Klonopin. Past Medical History: Included abdominal aortic aneurysm repair, bilateral CEA, atrial fibrillation, anemia, hypertension, and macular degeneration. Physical Examination: General: She appeared her stated age, in mild pain from her hip. Vital Signs: Stable, afebrile. Sinus rhythm. HEENT: Negative. Neck: Supple with no bruit. Chest: Clear. Cardiac: Revealed a regular rhythm and rate without any murmurs, gallops, or rubs. Abdomen: Benign. Extremities: Revealed no clubbing, cyanosis, or edema. Diagnostic Data: Chest x-ray was negative. EKG was nonspecific. Hemoglobin 9.2. Echocardiogram wh ich was done revealed normal ejection fraction, aortic sclerosis, and mitral annular calcification. Impression And Plan: The patient with history of abdominal aortic aneurysm repair, status post bilat eral endarterectomy, and atrial fibrillation for which she takes Xarelto at home. She is stable from a cardiovascular standpoint. Her echocardiogram is normal. She has no cardiac symptoms. No eviden ce of congestive heart failure. I think she is at acceptable risk for hip surgery. Her Xarelto had been held for about 3 days for now. Her other problems including hypertension, macular degeneration, and anemia seem to be stable at this point. Ms. Starr's family stated that she has had significant fatigue since starting the losartan at 100 mg daily at home, and we may have to reduce her dose when she is ready to be discharged. NB/MODL Voice ID: [id number] Report ID: [id number]
[2019-01-11] MEDS: MORPHINE 2 MG/ML SYR IV PRN ×3 (00:47→20:31)
[2019-01-11] MEDS: HYDROCODONE/APAP 5/325 MG TAB PO PRN (04:46)
[2019-01-11] MEDS: NA CHLORIDE 0.9% 1,000 ML IV SCH ×3 (04:48→22:06)
[2019-01-11 06:16] LABS: Absolute Lymphocytes (CBC) 0.7 K/uL (0.7-4.9); Absolute Monocytes 0.6 K/uL (0.1-1.3); Absolute Neutrophil 6.3 K/uL (1.8-8.0); Basophils % 0.8 % (0-1.3); Lymphocytes % 8.5 % (15.3-44.8); MPV 7.8 fL (7.6-11.3); Monocytes % 7.9 % (3.3-12.3); RBC Red Blood Cell Count 3.25 M/uL (3.86-4.86)
[2019-01-11 06:34] LABS: ALT/SGPT 17 U/L (12-78); AST/SGOT 22 U/L (15-37); Albumin 2.9 g/dL (3.4-5.0); Alkaline Phosphatase 167 U/L (45-117); BUN Blood Urea Nitrogen 7 mg/dL (7-18); Bicarbonate 24 mmol/L (21-32); Bilirubin Total 0.5 mg/dL (0.2-1.0); Glucose Level 95 mg/dL (74-106); Potassium 4.1 mmol/L (3.5-5.1); Protein, Total 6.4 g/dL (6.4-8.2); Sodium Level 138 mmol/L (136-145)
[2019-01-11] MEDS: NICOTINE 14 MG/PAT TD SCH (08:29)
[2019-01-11] MEDS ORDERED: CEFAZOLIN/SWI 1gm 1 GM/10 ML SYR ONE (09:25)
[2019-01-11] MEDS ORDERED: BUPIVACA 0.5%/EPI 0.0005%/PF 30 ML VIAL ONE (10:01)
[2019-01-11] MEDS ORDERED: PROPOFOL 200 MG/20 ML VIAL IV ONE (10:05)
[2019-01-11] MEDS ORDERED: FENTANYL CITR 100 MCG/2 ML ONE ×2 (10:05→11:24)
[2019-01-11] MEDS ORDERED: LIDOCAINE 1% MPF 5 ML VIAL ONE (10:06)
[2019-01-11] MEDS ORDERED: CEFAZOLIN SODIUM 1 GM/VIAL ONE (10:55)
[2019-01-11] MEDS ORDERED: NS 0.9% VIAL 10 ML ONE (11:33)
[2019-01-11] MEDS ORDERED: EPHEDRINE SULF 50 MG/ML VIAL ONE (11:33)
[2019-01-11] MEDS ORDERED: NA CHLORIDE 0.9% 1,000 ML ONE (11:40)
--- NOTE | 2019-01-11 11:57 | RAD REPORT ---
EXAM DESCRIPTION: RAD - Hip In Or - 01/11/2019 11:51 am FINDINGS: There were 9 portable C-arm views obtained during a fluoroscopic assisted placement of hip fracture fixation hardware. Images show stepwise placement of the hardware. No suspicious or unexpected finding. Fluoro time was 1.2 minutes.
--- NOTE | 2019-01-11 12:06 | P.BOP ---
Preoperative diagnosis: left femoral neck fracture Postoperative diagnosis: same Primary procedure: closed reduction percutaneous screw fixation of left femoral neck fracture Custom Garment Designer: NONE,NONE Estimated blood loss: 10 cc Specimen: none Findings: see dictation Anesthesia: General Complications: None Implants: 3- 6.5mm cannulated screws Fluids & blood products: per anesthesia record Transferred to: Recovery Room Condition: Good
[2019-01-11] MEDS: MORPHINE 4 MG/ML SYR ONE ×4 (12:09→12:31)
--- NOTE | 2019-01-11 12:29 | RAD REPORT ---
EXAM DESCRIPTION: RAD - Hip Left 2 View - 01/11/2019 12:20 pm CLINICAL HISTORY: POST OP HIP Left hip pain COMPARISON: Hip Left 2 View dated 01/09/2019; Hip In Or dated 01/11/2019 FINDINGS: Three lag screws have been placed in the proximal left femur traversing a left femoral nec k fracture. No unusual or unexpected abnormality.
[2019-01-11 12:54] LABS: Hematocrit 26.6 % (36.0-45.0)
[2019-01-11] MEDS ORDERED: HYDROMORPHONE HCL 1 MG/ML INJ ONE (12:55)
[2019-01-11] MEDS: ONDANSETRON 4 MG/2 ML VIAL IV PRN ×2 (13:54→19:29)
--- NOTE | 2019-01-11 17:01 | PN ---
Subjective: The patient is seen and examined. Chart reviewed and case discussed with RN. The patie nt will be going for surgery today as the necessary tools were not available for surgery yesterday. Medications: List reviewed. Objective: Vital Signs: Temperature 97.5, heart rate 94, blood pressure 166/57, respirations 18, O2 94% on 2 L via nasal cannula. General: Awake, alert, and oriented x3. Elderly female, in mild distress due to pain. CV: S1, S2. Peripheral pulses present. Regular rate and rhythm. Respiratory: Moving air well bilaterally. No wheezing. Gastrointestinal: Abdomen is soft, nontender, nondistended. Positive bowel sounds. No guarding or rigidity. Extremities: No clubbing, cyanosis, edema. Musculoskeletal: Left hip tenderness to palpation. Neurologic: Nonfocal. Laboratory Data: Sodium 138, potassium 4.1, chloride 107, CO2 24, BUN 7, creatinine 0.56, glucose 95 , calcium 8.2. WBC 7.7, H and H 8.4 and 26, platelets 209, neutrophils 80%. Assessment And Plan: An 83-year-old female with; 1.Left pathologic hip fracture, initial encounter closed. The patient was unable to be operated on yesterday due to lack of necessary tools, which are coming in from [place]. The patient is scheduled to go today. Appreciate Dr. Willams's and Dr. Carrizales's input. The patient is cleared from [facility]. 2.Status post fall, mechanical. The patient will need physical therapy after surgery. 3.Iron deficiency anemia due to chronic blood loss. Hemoglobin stable around 8. We will transfuse if less than 7. Continue to monitor H and H. 4.Atrial fibrillation, intermittent, currently in sinus rhythm. Xarelto on hold due to surgery. 5.Essential hypertension, stable. 6.History of abdominal aortic aneurysm repair. 7.History of right carotid endarterectomy. 8.Peripheral vascular disease, stable. 9.Mixed hyperlipidemia, stable. 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 11.Osteoporosis. 12.Deep venous thrombosis prophylaxis, addressed. Plan: Anticipate surgery today. /MODL Voice ID: [id number] Report ID: [id number]
[2019-01-11] MEDS ORDERED: HOME MED 1 EA UNK (Netarsudil Mesylate [Rhopressa] 1 DROP) EACH EYE SCH (17:15)
[2019-01-11] MEDS: CEFAZOLIN/SWI 1gm 1 GM/10 ML SYR IV SCH ×2 (18:06→23:59)
[2019-01-11] MEDS: POTASSIUM CL SA 10 MEQ TAB PO SCH (20:29)
[2019-01-11] MEDS: clonazePAM 1 MG TAB PO SCH (20:29)
[2019-01-11] MEDS: MELATONIN 5 MG TABLET PO SCH (20:29)
[2019-01-11] MEDS: DOCUSATE NA 100 MG CAP PO PRN (20:30)
[2019-01-11] MEDS ORDERED: BIMATOPROST OPTH SCH (21:00)
[2019-01-12] MEDS: MORPHINE 2 MG/ML SYR IV PRN ×3 (00:52→15:17)
--- NOTE | 2019-01-12 04:08 | OP ---
Date of Procedure: 01/11/2019 Surgeon: Jerald Willams MD Preoperative Diagnosis: Left femoral neck fracture. Postoperative Diagnosis: Left femoral neck fracture. Procedure Performed: Closed reduction, percutaneous screw fixation of left femoral neck fracture. Anesthesia: General LMA. Fluids: Per Anesthesia record. Estimated Blood Loss: Less than 10 cc. Complications: None. Implants: Three 6.5 mm cannulated screws. Complications: None. Indication For Procedure: Sumaya is an 83-year-old female who presented to the ER after a fall with subsequent pain to her left hip and an inability to bear weight. X-rays demonstrated a minimally dis placed left femoral neck fracture. I discussed with the patient and her daughter at length the risks and benefits associated with operative and nonoperative treatments. Given her stable fracture patabigail whitman, I recommended treatment with closed reduction with percutaneous screw fixation. She expressed un derstanding. Description Of Procedure: After informed consent was obtained, the patient was identified in the pre operative holding area. The left lower extremity was marked. The patient was then taken back to the operating room, transferred to operating table in supine fashion, placed under general LMA anesthesi a. She was then placed on the fracture table with her extremities well padded. Fluoroscopy was then used to evaluate the fracture. The patient continued to have a stable valgus impacted minimally dis placed femoral neck fracture. Both views were taken, both AP and lateral views and there was overall maintenance of reduction. The left lower extremity was then prepped and draped in usual sterile fas hion. A time-out was initiated. The correct patient and procedure were confirmed and identified. T he patient did receive preoperative prophylactic antibiotics. Attention was first taken using fluoro scopy to jeremie out the path for the inferior central screw. A small stab incision was made. The pin was placed within the stab incision and it was just below the subtrochanteric region of the femur, be ing a little too proximal, so a second stab incision was made just proximal to that incision and the inferior central pin was in proper position. It was then placed within the femoral neck and head in a retrograde fashion, in a center-center position and this was confirmed using fluoroscopy in both AP and lateral views. A superior anterior and superior posterior K-wires were then placed within the f emoral neck and head from the lateral aspect of the proximal femur in a retrograde fashion and they w ere parallel to the initial pin and there was good overall placement which was confirmed under fluoro scopy in an inverted triangle fashion. The outer cortex of the proximal femur was then drilled and t he pins were measured and 1st a central 6.5 cannulated screw was placed with a short thread. There w as good overall fit and it remained within the femoral head as confirmed with fluoroscopy in both AP and lateral planes near the subchondral bone. This was followed by 2, the superior anterior and supe rior posterior screws. There was good overall bite. The K-wires were then removed. The screws rashida ined within the femoral head and fluoroscopy was used to confirm that the screws did not perforate th e articular surface. The wounds were then irrigated thoroughly with normal saline. Subcutaneous tis sues were approximated using 2-0 Vicryl. The skin was approximated using maría. Sterile dressings were applied. The patient was awakened and transferred to PACU in stable condition. Postoperative Plan: She will be touchdown weightbearing of her left lower extremity for 6 weeks. Jennifer clark will follow up in my clinic in 2 weeks for wound check and staple removal. She will be returned ba to the floor and Physical Therapy will be consulted to aid in mobilization. SEBASTIEN/HECTORL Voice ID: [id number] Report ID: [id number]
[2019-01-12] MEDS: HYDROCODONE/APAP 5/325 MG TAB PO PRN ×3 (04:10→16:43)
[2019-01-12] MEDS: CEFAZOLIN/SWI 1gm 1 GM/10 ML SYR IV SCH (05:54)
[2019-01-12 06:42] LABS: Absolute Lymphocytes (CBC) 0.7 K/uL (0.7-4.9); Absolute Monocytes 0.6 K/uL (0.1-1.3); Absolute Neutrophil 4.5 K/uL (1.8-8.0); Basophils % 0.4 % (0-1.3); Hematocrit 21.6 % (36.0-45.0); Lymphocytes % 11.9 % (15.3-44.8); MPV 7.4 fL (7.6-11.3); Monocytes % 10.9 % (3.3-12.3)
[2019-01-12 06:53] LABS: ALT/SGPT 15 U/L (12-78); AST/SGOT 14 U/L (15-37); Albumin 2.4 g/dL (3.4-5.0); Alkaline Phosphatase 142 U/L (45-117); BUN Blood Urea Nitrogen 5 mg/dL (7-18); Bicarbonate 25 mmol/L (21-32); Bilirubin Total 0.3 mg/dL (0.2-1.0); Glucose Level 108 mg/dL (74-106); Potassium 4.2 mmol/L (3.5-5.1); Protein, Total 5.7 g/dL (6.4-8.2); Sodium Level 141 mmol/L (136-145)
[2019-01-12] MEDS: NA CHLORIDE 0.9% 1,000 ML IV SCH (07:00)
[2019-01-12] MEDS: NICOTINE 14 MG/PAT TD SCH (08:21)
[2019-01-12] MEDS: CITALOPRAM 10 MG TABLET PO SCH (08:22)
[2019-01-12] MEDS: POLYETHYL GLY 3350 17 GM/DOSE PO SCH (08:22)
[2019-01-12] MEDS: FUROSEMIDE 20 MG TABLET PO SCH (08:22)
--- NOTE | 2019-01-12 11:00 | P.PN ---
Subjective Date of Service: 01/12/19 Chief Complaint: hip fracture Subjective: Working w/ PT reports pain to left hip with physical therapy Physical Examination - Vital Signs Temperature: 98.1 F Blood Pressure: 166/79 Pulse: 100 Respirations: 18 Pulse Ox (%): 95 - Physical Exam General: Alert, In no apparent distress Musculoskeletal: Other (LLE: mild sanguionous drainage on dressing; no swelling of thigh; NVI distally) Assessment And Plan - Plan Sumaya is an 83 yo female s/p CRPP left femoral neck fracture POD#1 -acute expected postoperative blood loss anemia on chronic anemia; recheck H/H this afternoon; may need transfusion if H/H continues to drop -PT to mobilize TDWB LLE -DVT prophylaxis; mechanical prophylaxis with SCDs at this time; Dr. Srivastava will start chemical prophylaxis after discussion with Dr. Williamson and followup H/H given anemia
[2019-01-12 13:28] LABS: Hematocrit 22.9 % (36.0-45.0)
--- NOTE | 2019-01-12 14:32 | PN ---
Date of Progress Note: 01/12/2019 Subjective: Patient seen and examined. Chart reviewed and case discussed with RN. The patient complaining of pain, otherwise doing well. Medications: List reviewed. Physical Examination: Vital Signs: Temperature 98.1, heart rate 100, blood pressure 166/79, respirations 18, O2 is 95% on 3 liters via nasal cannula. General: Awake, alert, oriented x3, elderly female in mild distress due to pain. CV: S1, S2. Sinus tachycardia. Peripheral pulses weak. Respiratory: Moving air well bilaterally. No wheezing or stridor. Gastrointestinal: Abdomen is soft, nontender, nondistended. Positive bowel sounds. Extremities: No clubbing, cyanosis or edema. Musculoskeletal: Left hip incision site is clean, dry, and intact. Neurologic: Nonfocal. Laboratory Data: Sodium 141, potassium 4.2, chloride 111, CO2 25, BUN 5, creatinine 0.59, glucose 108, calcium 7.7, AST 14, ALT 15, alkaline phosphatase 142, albumin 2.4. WBC 5.9, H and H 7.3 and 21.6, platelets 195. Assessment And Plan: An 83-year-old female; 1. Left pathologic hip fracture, mildly displaced, initial encounter closed fracture. The patient is status post hip surgery yesterday, doing well postoperatively. Still complaining of some pain. Appreciate Dr. Willams's input. 2. Status post mechanical fall. We will initiate physical therapy. 3. Acute on chronic blood loss anemia. Hemoglobin has dropped down to 7.3. We will recheck hemoglobin at around 1 p.m. and transfuse if 7 or below. 4. Atrial fibrillation, intermittent, currently in sinus rhythm. Xarelto on hold due to surgery. We will resume 24 hours post. 5. Essential hypertension, stable. 6. History of abdominal aortic aneurysm repair. 7. History of carotid disease, status post endarterectomy stable. 8. Peripheral vascular disease stable. 9. Mixed hyperlipidemia. We will resume home medications. 10. 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 11. Osteoporosis. 12. Deep venous thrombosis prophylaxis. Restart Xarelto 24 hours post surgery. May need to be delayed due to acute blood loss anemia. We will start PT, OT. Refer to rehab. ADDENDUM: Spoke with Dr. Willams regarding drop in HH, DVT prophylaxis. Pt will be transfused 1 unit PRBCs. Lovenox for DVT prophylaxis. /SHANNON Voice ID: [id number] Report ID: [id number] MTDD
[2019-01-12] MEDS ORDERED: FUROSEMIDE 20 MG/ 2ML VIAL IV SCH (15:17)
[2019-01-12] MEDS ORDERED: MORPHINE 2 MG/ML SYR IV PRN (15:32)
[2019-01-12] MEDS ORDERED: ENOXAPARIN 30 MG/0.3 ML SQ SCH (17:00)
[2019-01-12] MEDS ORDERED: NA CHLORIDE 0.9% 250 ML ONE (20:30)
[2019-01-12] MEDS: DOCUSATE NA 100 MG CAP PO PRN (20:40)
[2019-01-12] MEDS: POTASSIUM CL SA 10 MEQ TAB PO SCH (20:40)
[2019-01-12] MEDS: clonazePAM 1 MG TAB PO SCH (20:40)
[2019-01-13] MEDS: MELATONIN 5 MG TABLET PO SCH ×2 (00:38→21:31)
[2019-01-13 02:48] LABS: Hematocrit 26.6 % (36.0-45.0)
[2019-01-13] MEDS: HYDROCODONE/APAP 5/325 MG TAB PO PRN ×4 (05:11→21:38)
[2019-01-13] MEDS: RIVAROXABAN 20 MG TABLET PO SCH (10:10)
[2019-01-13] MEDS: CITALOPRAM 10 MG TABLET PO SCH (10:10)
[2019-01-13] MEDS: FUROSEMIDE 20 MG TABLET PO SCH (10:10)
[2019-01-13] MEDS: POLYETHYL GLY 3350 17 GM/DOSE PO SCH (10:11)
[2019-01-13] MEDS: NICOTINE 14 MG/PAT TD SCH (10:11)
--- NOTE | 2019-01-13 15:06 | PN ---
Date of Progress Note: 01/13/2019 Subjective: The patient is seen and examined. Chart reviewed and case discussed with the RN. The p atient states her pain is better. Worked with physical therapy yesterday. Medications: List reviewed. Code status is do not resuscitate. The patient is a do not resuscitate at home, wishes to be DNR. Physical Examination: Vital Signs: Temperature 98.9, heart rate 108, blood pressure 145/60, respirations 20, O2 90% on 2 L via nasal cannula. General: Awake, alert, oriented, not in any acute distress, elderly female. CV: S1, S2. Peripheral pulses present. Respiratory: Moving air well bilaterally. No wheezing or stridor. Gastrointestinal: Abdomen is soft, nontender, nondistended. Positive bowel sounds. Extremities: No clubbing, cyanosis, or edema. Musculoskeletal: Left hip incision site clean, dry, intact. Neurologic: Nonfocal. Laboratory Data: H and H are 8.8, 26.6. Assessment And Plan: An 83-year-old female with: 1.Left minimally displaced pathologic hip fracture, closed initial encounter. The patient is status post hip surgery. Pain is improved. Working well with physical therapy. The patient was on Loveno x yesterday for deep vein thrombosis prophylaxis. 2.Status post mechanical fall. Continue PT, fall precautions. 3.Cfobt-vl-zbmpokx blood loss anemia. Hemoglobin improved after transfusion of 1 unit. We will rec heck hemoglobin and transfuse if less than 7 to keep hemoglobin around 8 due to her comorbid conditio ns. 4.Atrial fibrillation, intermittent, controlled rate. We will resume Xarelto today post surgery. 5.Essential hypertension, stable. 6.History of abdominal aortic aneurysm repair. 7.History of carotid disease, status post endarterectomy, stable. 8.Peripheral vascular disease, stable. 9.Hyperlipidemia, stable. 10.Glaucoma and macular degeneration and visual loss. Continue eyedrops. 11.Osteoporosis. 12.Deep venous thrombosis prophylaxis. The patient is now back on Xarelto, had to be held yesterday due to acute anemia and requiring blood transfusion. PLAN: Continue PT and refer to inpatient rehab. /SHANNON Voice ID: [id number] Report ID: [id number]
[2019-01-13] MEDS: POTASSIUM CL SA 10 MEQ TAB PO SCH (21:30)
[2019-01-13] MEDS: clonazePAM 1 MG TAB PO SCH (21:31)
[2019-01-14] MEDS: HYDROCODONE/APAP 5/325 MG TAB PO PRN ×4 (05:03→20:26)
[2019-01-14 05:24] LABS: Absolute Lymphocytes (CBC) 1.1 K/uL (0.7-4.9); Absolute Monocytes 0.5 K/uL (0.1-1.3); Absolute Neutrophil 3.2 K/uL (1.8-8.0); Basophils % 0.9 % (0-1.3); Eosinophils % 4.6 % (0-4.4); Hematocrit 24.9 % (36.0-45.0); Lymphocytes % 21.9 % (15.3-44.8); MPV 7.5 fL (7.6-11.3); Monocytes % 9.8 % (3.3-12.3); RBC Red Blood Cell Count 3.12 M/uL (3.86-4.86)
[2019-01-14 05:37] LABS: ALT/SGPT 9 U/L (12-78); AST/SGOT 13 U/L (15-37); Albumin 2.2 g/dL (3.4-5.0); Alkaline Phosphatase 115 U/L (45-117); BUN Blood Urea Nitrogen 8 mg/dL (7-18); Bicarbonate 28 mmol/L (21-32); Bilirubin Total 0.4 mg/dL (0.2-1.0); Glucose Level 98 mg/dL (74-106); Potassium 3.4 mmol/L (3.5-5.1); Protein, Total 5.6 g/dL (6.4-8.2); Sodium Level 140 mmol/L (136-145)
[2019-01-14] MEDS ORDERED: POTASSIUM 25 MEQ EFFERV TAB PO ONE (06:06)
[2019-01-14] MEDS: POLYETHYL GLY 3350 17 GM/DOSE PO SCH (08:51)
[2019-01-14] MEDS: NICOTINE 14 MG/PAT TD SCH (08:51)
[2019-01-14] MEDS: RIVAROXABAN 20 MG TABLET PO SCH (08:52)
[2019-01-14] MEDS: CITALOPRAM 10 MG TABLET PO SCH (08:52)
[2019-01-14] MEDS: FUROSEMIDE 20 MG TABLET PO SCH (08:58)
--- NOTE | 2019-01-14 12:55 | P.PN ---
Subjective Date of Service: 01/14/19 Chief Complaint: hip fracture Subjective: Working w/ PT reports pain to left hip with physical therapy Physical Examination - Vital Signs Temperature: 97.9 F Blood Pressure: 135/64 Pulse: 76 Respirations: 18 Pulse Ox (%): 94 - Physical Exam General: Alert, In no apparent distress Musculoskeletal: Other (LLE: dressing with minimal drainage; no significant thigh swelling; NVI distally) Assessment And Plan - Plan Sumaya is an 83 yo female s/p CRPP left femoral neck fracture POD#3 -acute expected postoperative blood loss anemia on chronic anemia; cont to monitor H/H -PT to mobilize TDWB LLE -DVT prophylaxis; on Xarelto
--- NOTE | 2019-01-14 13:34 | PN ---
Date of Progress Note: 01/14/2019 Subjective: The patient is seen and examined. Chart reviewed and case discussed with RN. The patient states her pain is significantly better. Has been working with physical therapy. No acute events overnight. Medications: List reviewed. Physical Examination: Vital Signs: Temperature 98, heart rate 87, blood pressure 123/83, respirations 18, O2 96% on 2 L via nasal cannula. General: Awake, alert, oriented x3 without any acute distress, elderly female. CV: S1, S2. Peripheral pulses present. Respiratory: Moving air well bilaterally. No wheezing. Gastrointestinal: Abdomen is soft, nontender, nondistended. Positive bowel sounds. Extremities: No clubbing, cyanosis, or edema. Musculoskeletal: Left hip incision site clean, dry, intact. Neurologic: Nonfocal. Laboratory Data: Sodium 140, potassium 3.4, chloride 106, CO2 of 28, BUN 8, creatinine 0.52, glucose 98, calcium 7.8, albumin is 2.2. WBC 5, H and H 8.2 and 24.9, platelets 219. Assessment And Plan: An 83-year-old female with: 1. Left minimally displaced pathologic hip fracture, closed initial encounter , status post surgery, doing well with physical therapy, on Xarelto for deep venous thrombosis prophylaxis. 2. Status post mechanical fall. Continue PT. 3. Plkun-eq-jzbpitn blood loss anemia. Hemoglobin improved after transfusion of PRBCs. Monitor H and H. 4. Atrial fibrillation, intermittent, controlled rate, currently in sinus rhythm. The patient's Xarelto has been resumed. 5. Essential hypertension, stable. 6. History of abdominal aortic aneurysm repair. 7. History of carotid disease, status post endarterectomy, stable. 8. Peripheral vascular disease, stable. 9. Hyperlipidemia, mixed, stable. 10. 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 We will continue eye drops. 11. Osteoporosis. 12. Deep venous thrombosis prophylaxis with Xarelto. Plan: Transfer to inpatient rehab once accepted. KENYA Voice ID: [id number] Report ID: [id number] MTDD
[2019-01-14] MEDS: POTASSIUM CL SA 10 MEQ TAB PO SCH (20:23)
[2019-01-14] MEDS: MELATONIN 5 MG TABLET PO SCH (20:23)
[2019-01-14] MEDS: clonazePAM 1 MG TAB PO SCH (20:23)
[2019-01-15 05:44] LABS: Absolute Monocytes 0.5 K/uL (0.1-1.3); Basophils % 0.9 % (0-1.3); Eosinophils % 4.3 % (0-4.4); Hematocrit 26.6 % (36.0-45.0); Lymphocytes % 21.9 % (15.3-44.8); MPV 7.1 fL (7.6-11.3); Monocytes % 9.6 % (3.3-12.3); RBC Red Blood Cell Count 3.25 M/uL (3.86-4.86)
[2019-01-15 06:03] LABS: ALT/SGPT 10 U/L (12-78); AST/SGOT 14 U/L (15-37); Albumin 2.4 g/dL (3.4-5.0); Alkaline Phosphatase 121 U/L (45-117); BUN Blood Urea Nitrogen 10 mg/dL (7-18); Bicarbonate 31 mmol/L (21-32); Bilirubin Total 0.4 mg/dL (0.2-1.0); Glucose Level 93 mg/dL (74-106); Potassium 4.2 mmol/L (3.5-5.1); Sodium Level 143 mmol/L (136-145)
[2019-01-15] MEDS: HYDROCODONE/APAP 5/325 MG TAB PO PRN ×4 (06:12→21:14)
--- NOTE | 2019-01-15 09:22 | P.PN ---
Subjective Date of Service: 01/15/19 Chief Complaint: hip fracture Subjective: No C/O voiced, Working w/ PT Patient seen and examined at bedside. No family at bedside. Chart reviewed and case discussed with nursing staff. Doing well, pain is controlled with medications. Next working well with physical therapy. No complaints or concerns this morning. No acute events noted overnight. Review of Systems 10-point ROS is otherwise unremarkable Physical Examination - Vital Signs Temperature: 97.5 F Blood Pressure: 191/79 Pulse: 82 Respirations: 20 Pulse Ox (%): 94 - Physical Exam General: Alert, In no apparent distress, Oriented x3, Other (Elderly, frail) HEENT: Atraumatic, PERRLA, EOMI Respiratory: Clear to auscultation bilaterally, Normal air movement Cardiovascular: Regular rate/rhythm, Normal S1 S2 Musculoskeletal: Other (Dressing clean, dry, intact) Assessment And Plan - Current Problems (Diagnosis) (1) Hip fracture Current Visit: Yes Status: Acute Plan: Status post surgery, postop day number 4. Working well with physical therapy. We will continue Xarelto for DVT prophylaxis. Qualifiers: Encounter type: initial encounter Fracture type: closed Laterality: left Qualified Code(s): S72.002A - Fracture of unspecified part of neck of left femur, initial encounter for closed fracture (2) Fall Onset Date: 09/06/17 Current Visit: No Status: Acute Plan: Status post mechanical fall, continue physical therapy. Qualifiers: Encounter type: initial encounter Qualified Code(s): W19.XXXA - Unspecified fall, initial encounter (3) Acute on chronic blood loss anemia Current Visit: Yes Status: Acute Plan: Hemoglobin remained stable after transfusion of PRBC. We will continue to monitor H&H. (4) Atrial fibrillation Onset Date: 10/27/16 Current Visit: No Status: Chronic Plan: Rate controlled, currently in sinus rhythm. Continue xarelto. Qualifiers: Atrial fibrillation type: chronic Qualified Code(s): I48.2 - Chronic atrial fibrillation (5) History of abdominal aortic aneurysm (AAA) repair Current Visit: Yes Status: Acute Plan: Stable (6) Peripheral vascular disease Current Visit: Yes Status: Acute (7) Glaucoma and macular degeneration Current Visit: Yes Status: Acute Plan: We will continue eyedrops. (8) Osteoporosis Current Visit: Yes Status: Acute (9) Hypertension Onset Date: 10/27/16 Current Visit: No Status: Chronic Plan: Stable, continue current medications. Qualifiers: Hypertension type: essential hypertension Qualified Code(s): I10 - Essential (primary) hypertension (10) Hyperlipidemia Onset Date: 10/27/16 Current Visit: No Status: Chronic Plan: Stable, continue current medications. Qualifiers: Hyperlipidemia type: unspecified Qualified Code(s): E78.5 - Hyperlipidemia , unspecified (11) Carotid arterial disease Onset Date: 10/27/16 Current Visit: No Status: Chronic Plan: Stable - Plan DVT prophylaxis: Xarelto GI prophylaxis: None Diet: Heart healthy Disposition: Pending inpatient rehab evaluation/placement.
[2019-01-15] MEDS: RIVAROXABAN 20 MG TABLET PO SCH (09:29)
[2019-01-15] MEDS: POLYETHYL GLY 3350 17 GM/DOSE PO SCH (09:29)
[2019-01-15] MEDS: FUROSEMIDE 20 MG TABLET PO SCH (09:29)
[2019-01-15] MEDS: CITALOPRAM 10 MG TABLET PO SCH (09:29)
[2019-01-15] MEDS: NICOTINE 14 MG/PAT TD SCH (09:29)
--- NOTE | 2019-01-15 12:13 | P.PN ---
Subjective Date of Service: 01/15/19 Chief Complaint: hip fracture Subjective: Working w/ PT working with PT; difficulty with TDBW precautions Physical Examination - Vital Signs Temperature: 97.5 F Blood Pressure: 191/79 Pulse: 82 Respirations: 20 Pulse Ox (%): 94 - Physical Exam General: Alert, In no apparent distress Musculoskeletal: Other (LLE: dressing with old sanguinous drainage; NVI distally ) Assessment And Plan - Plan Sumaya is an 83 yo female s/p CRPP left femoral neck fracture POD#4 -acute expected postoperative blood loss anemia on chronic anemia; H/H stabilizing -PT to mobilize TDWB LLE -DVT prophylaxis; on Xarelto -dressing change today -awaiting rehab eval/acceptance vs SNF -I will be out of town beginning tomorrow; Dr. Beatty will be available for questions/concerns
[2019-01-15] MEDS ORDERED: LOSARTAN POTASSIUM 50 MG TABLET PO ONE (14:49)
[2019-01-15] MEDS: MELATONIN 5 MG TABLET PO SCH (21:14)
[2019-01-15] MEDS: clonazePAM 1 MG TAB PO SCH (21:14)
[2019-01-15] MEDS: POTASSIUM CL SA 10 MEQ TAB PO SCH (21:14)
[2019-01-16] MEDS ORDERED: METOPROLOL TAR 50 MG TAB PO ONE (01:43)
[2019-01-16] MEDS: HYDRALAZINE HCL 20 MG/ML VIAL IV PRN ×3 (02:34→20:27)
[2019-01-16 05:45] LABS: Absolute Monocytes 0.6 K/uL (0.1-1.3); Absolute Neutrophil 4.1 K/uL (1.8-8.0); Basophils % 0.9 % (0-1.3); Eosinophils % 3.5 % (0-4.4); Hematocrit 26.6 % (36.0-45.0); Lymphocytes % 16.2 % (15.3-44.8); MPV 7.3 fL (7.6-11.3); RBC Red Blood Cell Count 3.29 M/uL (3.86-4.86)
[2019-01-16] MEDS: HYDROCODONE/APAP 5/325 MG TAB PO PRN ×3 (06:04→20:33)
[2019-01-16] MEDS: POLYETHYL GLY 3350 17 GM/DOSE PO SCH (08:56)
[2019-01-16] MEDS: RIVAROXABAN 20 MG TABLET PO SCH (08:56)
[2019-01-16] MEDS: NICOTINE 14 MG/PAT TD SCH (08:57)
[2019-01-16] MEDS: FUROSEMIDE 20 MG TABLET PO SCH (08:58)
[2019-01-16] MEDS: LOSARTAN POTASSIUM 50 MG TABLET PO SCH (09:00)
[2019-01-16] MEDS ORDERED: LOSARTAN POTASSIUM 50 MG TABLET PO SCH (09:00)
[2019-01-16] MEDS: CITALOPRAM 10 MG TABLET PO SCH (09:00)
--- NOTE | 2019-01-16 09:26 | P.PN ---
Subjective Date of Service: 01/16/19 Chief Complaint: hip fracture Subjective: No C/O voiced Patient seen and examined at bedside. No family at bedside. Chart reviewed and case discussed with nursing staff. Doing well, pain is controlled with medications. Next working well with physical therapy. No complaints or concerns this morning. BP better controlled this morning. No acute events noted overnight. Review of Systems 10-point ROS is otherwise unremarkable Physical Examination - Vital Signs Temperature: 97.8 F Blood Pressure: 156/68 Pulse: 87 Respirations: 16 Pulse Ox (%): 96 - Physical Exam General: Alert, In no apparent distress, Oriented x3 HEENT: Atraumatic, PERRLA, EOMI Neck: Supple, JVD not distended Respiratory: Clear to auscultation bilaterally, Normal air movement Cardiovascular: Regular rate/rhythm, Normal S1 S2 Gastrointestinal: Normal bowel sounds, No tenderness Integumentary: No rashes Neurological: Normal speech, Normal tone, Normal affect Lymphatics: No axilla or inguinal lymphadenopathy Assessment And Plan - Current Problems (Diagnosis) (1) Hip fracture Current Visit: Yes Status: Acute Plan: Status post surgery, postop day number 5. Working well with physical therapy. We will continue Xarelto for DVT prophylaxis. Qualifiers: Encounter type: initial encounter Fracture type: closed Laterality: left Qualified Code(s): S72.002A - Fracture of unspecified part of neck of left femur, initial encounter for closed fracture (2) Fall Onset Date: 09/06/17 Current Visit: No Status: Acute Plan: Status post mechanical fall, continue physical therapy. Qualifiers: Encounter type: initial encounter Qualified Code(s): W19.XXXA - Unspecified fall, initial encounter (3) Acute on chronic blood loss anemia Current Visit: Yes Status: Acute Plan: Hemoglobin remained stable after transfusion of PRBC. We will continue to monitor H&H. (4) Atrial fibrillation Onset Date: 10/27/16 Current Visit: No Status: Chronic Plan: Rate controlled, currently in sinus rhythm. Continue xarelto. Qualifiers: Atrial fibrillation type: chronic Qualified Code(s): I48.2 - Chronic atrial fibrillation (5) History of abdominal aortic aneurysm (AAA) repair Current Visit: Yes Status: Acute Plan: Stable (6) Peripheral vascular disease Current Visit: Yes Status: Acute (7) Glaucoma and macular degeneration Current Visit: Yes Status: Acute Plan: We will continue eyedrops. (8) Osteoporosis Current Visit: Yes Status: Acute Qualifiers: Osteoporosis type: age-related Presence of current pathological fracture: with current pathological fracture Encounter type: initial encounter Qualified Code(s): M80.00XA - Age-related osteoporosis with current pathological fracture, unspecified site, initial encounter for fracture (9) Hypertension Onset Date: 10/27/16 Current Visit: No Status: Chronic Plan: Blood pressure elevated yestarday. Home losartan restarted, BP better controlled now. continue current medications. Qualifiers: Hypertension type: essential hypertension Qualified Code(s): I10 - Essential (primary) hypertension (10) Hyperlipidemia Onset Date: 10/27/16 Current Visit: No Status: Chronic Plan: Stable, continue current medications. Qualifiers: Hyperlipidemia type: unspecified Qualified Code(s): E78.5 - Hyperlipidemia , unspecified (11) Carotid arterial disease Onset Date: 10/27/16 Current Visit: No Status: Chronic Plan: Stable Qualifiers: Carotid artery disease type: unspecified Laterality: unspecified laterality Qualified Code(s): I77.9 - Disorder of arteries and arterioles, unspecified - Plan DVT prophylaxis: Xarelto GI prophylaxis: None Diet: Heart healthy Disposition: Pending peer to peer for inpatient rehab evaluation/placement denial. If still denied, next step is placement in [place]. GABRIEL on board.
[2019-01-16] MEDS: ONDANSETRON 4 MG/2 ML VIAL IV PRN (16:20)
[2019-01-16] MEDS: POTASSIUM CL SA 10 MEQ TAB PO SCH (20:27)
[2019-01-16] MEDS: clonazePAM 1 MG TAB PO SCH (20:28)
[2019-01-16] MEDS: MELATONIN 5 MG TABLET PO SCH (20:28)
[2019-01-17] MEDS: RIVAROXABAN 20 MG TABLET PO SCH (09:10)
[2019-01-17] MEDS: FUROSEMIDE 20 MG TABLET PO SCH (09:11)
[2019-01-17] MEDS: CITALOPRAM 10 MG TABLET PO SCH (09:11)
[2019-01-17] MEDS: LOSARTAN POTASSIUM 50 MG TABLET PO SCH (09:11)
[2019-01-17] MEDS: NICOTINE 14 MG/PAT TD SCH (09:12)
[2019-01-17] MEDS: POLYETHYL GLY 3350 17 GM/DOSE PO SCH (09:12)
--- NOTE | 2019-01-17 10:15 | P.PN ---
Subjective Date of Service: 01/17/19 Chief Complaint: hip fracture Subjective: No C/O voiced, Improving, Working w/ PT Patient seen and examined at bedside. No family at bedside. Chart reviewed and case discussed with nursing staff. Doing well, pain is controlled with medications. Next working well with physical therapy. No complaints or concerns this morning. BP elevated this morning, though it was checked before medications given. No acute events noted overnight. Review of Systems 10-point ROS is otherwise unremarkable Physical Examination - Vital Signs Temperature: 97.9 F Blood Pressure: 173/70 Pulse: 82 Respirations: 20 Pulse Ox (%): 96 - Physical Exam General: Alert, In no apparent distress, Oriented x3, Other (Elderly, frail) HEENT: Atraumatic, PERRLA, EOMI Neck: Supple, JVD not distended Respiratory: Clear to auscultation bilaterally, Normal air movement Cardiovascular: Regular rate/rhythm, Normal S1 S2 Gastrointestinal: Normal bowel sounds, No tenderness Musculoskeletal: No tenderness Integumentary: No rashes Neurological: Normal speech, Normal tone, Normal affect Lymphatics: No axilla or inguinal lymphadenopathy Assessment And Plan - Current Problems (Diagnosis) (1) Hip fracture Current Visit: Yes Status: Acute Plan: Status post surgery, postop day number 6. Working well with physical therapy. We will continue Xarelto for DVT prophylaxis. Qualifiers: Encounter type: initial encounter Fracture type: closed Laterality: left Qualified Code(s): S72.002A - Fracture of unspecified part of neck of left femur, initial encounter for closed fracture (2) Fall Onset Date: 09/06/17 Current Visit: No Status: Acute Plan: Status post mechanical fall, continue physical therapy. Qualifiers: Encounter type: initial encounter Qualified Code(s): W19.XXXA - Unspecified fall, initial encounter (3) Acute on chronic blood loss anemia Current Visit: Yes Status: Acute Plan: Hemoglobin remained stable after transfusion of PRBC. We will continue to monitor H&H. (4) Atrial fibrillation Onset Date: 10/27/16 Current Visit: No Status: Chronic Plan: Rate controlled, currently in sinus rhythm. Continue xarelto. Qualifiers: Atrial fibrillation type: chronic Qualified Code(s): I48.2 - Chronic atrial fibrillation (5) History of abdominal aortic aneurysm (AAA) repair Current Visit: Yes Status: Acute Plan: Stable (6) Peripheral vascular disease Current Visit: Yes Status: Acute (7) Glaucoma and macular degeneration Current Visit: Yes Status: Acute Plan: We will continue eyedrops. (8) Osteoporosis Current Visit: Yes Status: Acute Qualifiers: Osteoporosis type: age-related Presence of current pathological fracture: with current pathological fracture Encounter type: initial encounter Qualified Code(s): M80.00XA - Age-related osteoporosis with current pathological fracture, unspecified site, initial encounter for fracture (9) Hypertension Onset Date: 10/27/16 Current Visit: No Status: Chronic Plan: Blood pressure elevated yestarday. Home losartan restarted, BP better controlled now. continue current medications. Qualifiers: Hypertension type: essential hypertension Qualified Code(s): I10 - Essential (primary) hypertension (10) Hyperlipidemia Onset Date: 10/27/16 Current Visit: No Status: Chronic Plan: Stable, continue current medications. Qualifiers: Hyperlipidemia type: unspecified Qualified Code(s): E78.5 - Hyperlipidemia , unspecified (11) Carotid arterial disease Onset Date: 10/27/16 Current Visit: No Status: Chronic Plan: Stable Qualifiers: Carotid artery disease type: unspecified Laterality: unspecified laterality Qualified Code(s): I77.9 - Disorder of arteries and arterioles, unspecified - Plan DVT prophylaxis: Xarelto GI prophylaxis: None Diet: Heart healthy Disposition: Inpatient rehab denied by insurance. Patient now pending bed at [facility]. GABRIEL on board.
[2019-01-17] MEDS: HYDROCODONE/APAP 5/325 MG TAB PO PRN ×2 (12:49→19:11)
[2019-01-17 20:26] VITALS: O2SAT 98
[2019-01-17] MEDS: POTASSIUM CL SA 10 MEQ TAB PO SCH (21:24)
[2019-01-17] MEDS: MELATONIN 5 MG TABLET PO SCH (21:24)
[2019-01-17] MEDS: clonazePAM 1 MG TAB PO SCH (22:45)
[2019-01-18] MEDS: FUROSEMIDE 20 MG TABLET PO SCH (08:27)
[2019-01-18] MEDS: RIVAROXABAN 20 MG TABLET PO SCH (08:28)
[2019-01-18] MEDS: LOSARTAN POTASSIUM 50 MG TABLET PO SCH (08:28)
[2019-01-18] MEDS: CITALOPRAM 10 MG TABLET PO SCH (08:28)
[2019-01-18] MEDS: NICOTINE 14 MG/PAT TD SCH (08:29)
[2019-01-18] MEDS: POLYETHYL GLY 3350 17 GM/DOSE PO SCH (08:31)
[2019-01-18] MEDS: HYDROCODONE/APAP 5/325 MG TAB PO PRN (11:56)
[2019-01-18] MEDS ORDERED: HYDROCODONE/APAP 5/325 MG TAB PO PRN (15:41)
--- NOTE | 2019-01-18 16:27 | P.DS ---
Admission Date: 01/09/19 Discharge Date: 01/18/19 Disposition: TRANSF[facility] TO [facility] Discharge Condition: FAIR Reason for Admission: hip fracture Consultations: Dr. Willams Procedures: 01/11/2019: Closed reduction, percutaneous screw fixation of left femoral neck fracture - Problems (1) Hip fracture Current Visit: Yes Status: Acute Qualifiers: Encounter type: initial encounter Fracture type: closed Laterality: left Qualified Code(s): S72.002A - Fracture of unspecified part of neck of left femur, initial encounter for closed fracture (2) Fall Onset Date: 09/06/17 Current Visit: No Status: Acute Qualifiers: Encounter type: initial encounter Qualified Code(s): W19.XXXA - Unspecified fall, initial encounter (3) Acute on chronic blood loss anemia Current Visit: Yes Status: Acute (4) Atrial fibrillation Onset Date: 10/27/16 Current Visit: No Status: Chronic Qualifiers: Atrial fibrillation type: chronic Qualified Code(s): I48.2 - Chronic atrial fibrillation (5) History of abdominal aortic aneurysm (AAA) repair Current Visit: Yes Status: Acute (6) Peripheral vascular disease Current Visit: Yes Status: Acute (7) Glaucoma and macular degeneration Current Visit: Yes Status: Acute (8) Osteoporosis Current Visit: Yes Status: Acute Qualifiers: Osteoporosis type: age-related Presence of current pathological fracture: with current pathological fracture Encounter type: initial encounter Qualified Code(s): M80.00XA - Age-related osteoporosis with current pathological fracture, unspecified site, initial encounter for fracture (9) Hypertension Onset Date: 10/27/16 Current Visit: No Status: Chronic Qualifiers: Hypertension type: essential hypertension Qualified Code(s): I10 - Essential (primary) hypertension (10) Hyperlipidemia Onset Date: 10/27/16 Current Visit: No Status: Chronic Qualifiers: Hyperlipidemia type: unspecified Qualified Code(s): E78.5 - Hyperlipidemia , unspecified (11) Carotid arterial disease Onset Date: 10/27/16 Current Visit: No Status: Chronic Qualifiers: Carotid artery disease type: unspecified Laterality: unspecified laterality Qualified Code(s): I77.9 - Disorder of arteries and arterioles, unspecified Brief History of Present Illness: Ms Starr is an 83 years old woman with multiple medical problems, including AAA repair, bilateral endarterectomy, A.Fib on chronic anticoagulation with Xarelto, peripheral artery disease, who unfortunately sustained a fall from ground level this afternoon at home. The patient says that she tripped and fell. She did not hit her head or had LOC. She land over her left side. She denied dizziness or palpitations prior the fall. Images are consistent with left subcapital femoral fracture. She is painful and is complaining of positional muscle cramps. Hospital Course: Patient was admitted for hip fracture after a mechanical fall. She underwent surgery, tolerated surgery well. She will regain well with physical therapy post surgery. She was started and continued on Xarelto for DVT prophylaxis. Post surgery, she did have acute blood loss anemia and she was transfused 1 unit of PRBC. Her hemoglobin remained stable posttransfusion. She remained in sinus rhythm and rate controlled in regards to atrial fibrillation. She was continued on Xarelto. She did have some elevated blood pressures initially. Her home medication of losartan was restarted and her blood pressure was better controlled with it. She otherwise remained stable in regards to her high blood Overall, she did well throughout the stay. She was referred to inpatient rehab , was denied by insurance. Did family chose [facility] swing bed. She was improved and patient was then transferred to [facility] for further rehabilitation in a safe and stable manner. For treatment planning diagnoses were explained to her as the only. They verbalized understanding, all questions answered. She was then discharged to [facility] in a safe and stable manner. Vital Signs/Physical Exam: Temp Pulse Resp BP Pulse Ox 97.2 F 79 20 126/60 98 01/18/19 12:00 01/18/19 12:00 01/18/19 12:00 01/18/19 12:00 01/18/19 12:00 General: Alert, In no apparent distress HEENT: Atraumatic, PERRLA, EOMI Neck: Supple, JVD not distended Respiratory: Clear to auscultation bilaterally, Normal air movement Cardiovascular: Regular rate/rhythm, Normal S1 S2 Gastrointestinal: Normal bowel sounds, No tenderness Musculoskeletal: No tenderness Integumentary: No rashes Neurological: Normal speech, Normal tone, Normal affect Lymphatics: No axilla or inguinal lymphadenopathy Laboratory Data at Discharge: WBC 6.0 K/uL (4.3-10.9) D 01/16/19 05:19 Hgb 8.8 g/dL (12.0-15.0) L 01/16/19 05:19 Hct 26.6 % (36.0-45.0) L 01/16/19 05:19 Plt Count 256 K/uL (152-406) 01/16/19 05:19 PT 11.9 SECONDS (9.5-12.5) 01/09/19 16:50 INR 1.01 01/09/19 16:50 APTT 35.5 SECONDS (24.3-36.9) 01/09/19 16:50 Sodium 143 mmol/L (136-145) 01/15/19 05:32 Potassium 4.2 mmol/L (3.5-5.1) 01/15/19 05:32 BUN 10 mg/dL (7-18) 01/15/19 05:32 Creatinine 0.53 mg/dL (0.55-1.3) L 01/15/19 05:32 Glucose 93 mg/dL (74-106) 01/15/19 05:32 Magnesium 2.0 mg/dL (1.8-2.4) 01/16/19 05:19 Total Bilirubin 0.4 mg/dL (0.2-1.0) 01/15/19 05:32 AST 14 U/L (15-37) L 01/15/19 05:32 ALT 10 U/L (12-78) L 01/15/19 05:32 Alkaline Phosphatase 121 U/L (45-117) H 01/15/19 05:32 Home Medications: RX: Bimatoprost [Lumigan] 1 drop EACH EYE BID 01/10/19 RX: Citalopram [Celexa*] 1 tab PO DAILY 01/10/19 RX: Furosemide [Lasix] 1 tab PO DAILY 01/10/19 RX: Melatonin 10 mg PO BEDTIME 01/10/19 RX: Netarsudil Mesylate [Rhopressa] 1 drop EACH EYE SEECOM 01/10/19 RX: Ondansetron HCl [Zofran] 1 tab PO Q6H PRN 01/10/19 RX: Polyethylene Glycol 3350 [Miralax] 17 gm PO DAILY 01/10/19 RX: Potassium Chloride [Klor-Con 10] 1 tab PO BEDTIME 01/10/19 RX: Rivaroxaban [Xarelto] 1 tab PO DAILY 01/10/19 RX: clonazePAM [Clonazepam] 1 tab PO BEDTIME 01/10/19 RX: clonazePAM [Klonopin] 1 tab PO BID PRN 01/10/19 RX: Losartan Potassium [Cozaar] 25 mg PO DAILY 01/15/19 RX: Hydrocodone 5/APAP 325 [[place] 5/325*] 1 tab PO Q4H PRN tab 01/18/19 RX: Nicotine [Nicoderm*] 14 mg TD DAILY #15 patch.td24 01/18/19 New Medications: RX: Nicotine [Nicoderm*] 14 mg TD DAILY #15 patch.td24 Patient Discharge Instructions: Please follow up with the primary care physician in 2-3 days. Please follow up with Dr. Willams in 2 weeks Diet: Low sodium Followup: Azar Carrizales MD [ACTIVE - CAN ADMIT] - Jam Dixon MD [Primary Care Provider] - Jerald Willams MD [ACTIVE - CAN ADMIT] - Time spent managing pt's care (in minutes): 55
[2019-01-18 17:32] VITALS: BP 167/72; TEMP 97.3
[2019-01-18] MEDS ORDERED: clonazePAM 1 MG TAB PO SCH (21:00)
== END 2019-01-18 18:50 | disposition swing bed (61) | DRG 481 ==
LOC: ER 16:32 → ERHOLD 18:41 → 2ND 21:08
PROVIDERS: ADMIT Family Medicine; ATTEND Family Medicine
PROC: 0QS734Z Reposition Left Upper Femur with Internal Fixation Device, Percutaneous Approach (ICD-10-PCS; principal; 2019-01-11 10:00)
PROC: 30233N1 Transfusion of Nonautologous Red Blood Cells into Peripheral Vein, Percutaneous Approach (ICD-10-PCS; 2019-01-12)
DX: S72.012A Unspecified intracapsular fracture of left femur, initial encounter for closed fracture (principal); D62 Acute posthemorrhagic anemia; W01.0XXA Fall on same level from slipping, tripping and stumbling without subsequent striking against object, initial encounter; D50.0 Iron deficiency anemia secondary to blood loss (chronic); I48.2 Chronic atrial fibrillation; I10 Essential (primary) hypertension; I73.9 Peripheral vascular disease, unspecified; K21.9 Gastro-esophageal reflux disease without esophagitis; F17.210 Nicotine dependence, cigarettes, uncomplicated; E78.2 Mixed hyperlipidemia; M81.0 Age-related osteoporosis without current pathological fracture; H40.9 Unspecified glaucoma; H35.30 Unspecified macular degeneration; Z79.01 Long term (current) use of anticoagulants; Z91.040 Latex allergy status; Z91.010 Allergy to peanuts
CPT/HCPCS: 36415; 36430; 51702; 70450; 71045; 71260; 72125; 72170; 73530; 74177; 80048; 80053; 83735; 83880; 84132; 84484; 85014; 85018; 85025; 85610; 85730; 86850; 86900; 86901; 93005; 93306; 94760; 96365; 96367; 96374; 96375; 97110; 97116; 97163; 97166; 97530; 99285; J0360; J0690; J1170; J1650; J1940; J2270; J2405; J2704; J3010; J7030; P9016; Q9967

== ENCOUNTER 2021-08-11 08:04 | Inpatient (IN) | payer OTHER ==
--- OUTSIDE RECORDS SUMMARY | 2021-08-11 08:07 | XMS REPORT | Continuity of Care Document ---
:1935 Author Organization [facility] t Address [facility] [place] [address] Care Team Providers Name Role Phone Pcp-None Primary Care Physician Unavailable Franklin Akhtar Attending Clinician Unavailable Franklin Akhtar Admitting Clinician Unavailable Problems This patient has no known problems. Allergies, Adverse Reactions, Alerts This patient has no known allergies or adverse reactions. Medications This patient has no known medications. Procedures This patient has no known procedures. Results Test Description Test Time Test Results Result Source Comments Comments CT abdomen pelvis wo/w con [facility] [address] [place], [place] [address] Patient Name: Cali Jesus Medical Record#: [id number] Address: [address] [place] [address] [address] City/State/Zip: [place] [address]: Fredy Akhtar MD Insurance: [employer] Advantag e /Age/Sex: 1935/86/F Self Pay Admit/Reg Date: 04/29/[address]: Fredy Akhtar MD Location: [place] [id number].[id number] PCP: PcpMd LESLIE Flanagan Date of Service: 04/30/21 Order (s): CT abdomen pelvis wo/w con CPT Code: 82754 Report Number: [id number] Reason for Exam: possible bleed EXAMINATION: CT abdomen pelvis wo/w con CLINICAL INDICATION: Female, 86 years old with possible bleed TECHNIQUE: Thin section axial pre- and post-contrast contiguous images were obtained through the abdomen and pelvis followed by coronal and sagittal multiplanar reformations. One or more of the following dose reduction techniques were used: Automated exposure control, adjustment of the mA and/or kV according to patient size, and/or iterative reconstruction. COMPARISON: 04/26/2021 FINDINGS: Lower Chest: Visualized lung bases are clear. Heart is normal in size. No pericardial or pleural effusion. Liver: Normal in size and contour. No focal lesions. There is moderate biliary ductal ectasia. The common duct measures upwards of 1 cm in diameter. There is no visualized obstructing calculus or lesion. Gallbladder: Surgically absent. Pancreas: Coarse calcifications in the pancreatic head suggestive of multiple episodes of prior pancreatitis. There is no visualized acute inflammation. Spleen: Normal in size and contour. Adrenals: Normal configuration. Kidneys and ureters: There is heterogeneous cortical enhancement of the kidneys on the precontrast phase along with small amount of excreted contrast within the ureters and urinary bladder. Small renal calculi noted on recent prior CT are not appreciable on today's exam. There is no hydronephrosis or perinephric collection. Bladder/Reproductive Organs: Urinary bladder is partially filled with excreted contrast. Uterus is surgically absent. No adnexal mass. Bowel: Loops of bowel without wall thickening or obstruction. Normal appendix. Large amount stool remains throughout the colon. No free air, free fluid, or fluid collection. Lymph nodes: There are no pathologically enlarged abdominopelvic lymph nodes. Retroperitoneum: No mass or hemorrhage. Calcified atheromatous plaques present throughout the abdominal aorta. There is stable mild fusiform aneurysmal dilatation measuring upwards of 3.3 cm in maximal diameter. Patient has had prior aortobifem bypass grafting. There is no retroperitoneal hematoma. Abdominal wall: No hernia or mass. Bones: Fixation screws noted within the left femoral neck. Degenerative changes present throughout the spine. IMPRESSION: 1. Large amount of stool throughout the colon suggesting constipation. 2. Retained contrast from previous exam within the renal collecting systems and urinary bladder noted on the precontrast phase of today's exam. Recommend correlation for renal function. 3. Stable mild fusiform aneurysmal dilatation of the abdominal aorta. 4. Intra- and extrahepatic biliary ductal ectasia, likely postcholecystectomy related. Recommend correlation with serum bilirubin levels and MRCP, if clinically indicated. Electronically signed by: Enrique Nance MD 04/30/2021 1:32 PM CDT Dictated By: Enrique Nance MD 04/30/21 1257 Signed By: Enrique Nance MD 04/30/21 1257 TD/TT: 04/30/21 1257 Tech: [id number] cc: [email or web address]; PCPNO* Fredy Akhtar MD; PcpMd LESLIE Flanagan EKG Electrocardiogram [address] [address] Patient Name: Cali Jesus Medical Record#: [id number] Address: [address] [place] [address] City/State/[place] [address]: Fredy Akhtar MD Insurance: [facility] Medicare [facility] e /Age/Sex: 1935/86/F Self Pay Admit/Reg Date: 04/29/[address]: Fredy Akhtar MD Location: [address] PCP: Md LESLIE Beltran Date of Service: 04/30/21 Order (s): EKG Electrocardiogram CPT Code: 28275 Report Number: [id number] Reason for Exam: Unstable Angina Sinus rhythm Ventricular premature complex Borderline low voltage, extremity leads Borderline prolonged QT interval Summary: Borderline ECG Dictated By: Vitaliy Atkinson MD 04/30/21 130 Signed By: Vitaliy Atkinson MD 05/06/211939 TD/TT: 04/30/21 130 Tech: [id number] cc: [email or web address]; PCPNO* Fredy Akhtar MD; PcpMd LESLIE Flanagan EKG Electrocardiogram [facility] [address] [place] [address] Patient Name: Cali Jesus Medical Record#: [id number] Address: [address] [place] [address] City/State/Zip: [place] [address]: Fredy Akhtar MD Insurance: [employer] Advantag e /Age/Sex: 1935/86/F Self Pay Admit/Reg Date: 04/29/[address]: Parker Servin MD Location: [place] [id number] PCP: Md LESLIE Beltran Date of Service: 04/29/21 Order (s): EKG Electrocardiogram CPT Code: 51358 Report Number: [id number] Reason for Exam: chest pain Sinus rhythm Atrial premature complex Low voltage, extremity leads Abnormal R-wave progression, early transition Summary: Borderline ECG Dictated By: Vitaliy Atkinson MD 04/29/21 1238 Signed By: Vitaliy Atkinson MD 04/30/21 1329 TD/TT: 04/29/21 1238 Tech: [id number] cc: [email or web address]; PCPNO* Parker Servin MD; PcpMd LESLIE Flanagan
[2021-08-11] MEDS ORDERED: ONDANSETRON 4 MG/2 ML VIAL ONE ×3 (08:33→15:39)
[2021-08-11] MEDS ORDERED: NA CHLORIDE 0.9% 500 ML ONE (08:33)
[2021-08-11] MEDS ORDERED: MORPHINE 2 MG/ML SYR ONE ×5 (08:52→15:47)
[2021-08-11 08:53] LABS: Absolute Lymphocytes (CBC) 0.6 K/uL (0.7-4.9); Basophils % 0.6 % (0-1.3); Hematocrit 33.8 % (36.0-45.0); Lymphocytes % 8.2 % (15.3-44.8); MPV 6.8 fL (7.6-11.3); RBC Red Blood Cell Count 3.89 M/uL (3.86-4.86)
[2021-08-11 08:58] LABS: Urine Blood 3+ (Negative); Urine Glucose Negative (Negative); Urine Protein 1+ (Negative); Urine Specific Gravity 1.025 (1.005-1.030); Urine pH 6.5 (5.0-7.0)
[2021-08-11 09:35] LABS: Urine Bacteria 20-50 /HPF (<20); Urine RBC >50 /HPF (NONE SEEN)
--- NOTE | 2021-08-11 11:41 | RAD REPORT ---
EXAM DESCRIPTION: CTAbdomen Pelvis W Contrast - 08/11/2021 11:24 am CLINICAL HISTORY: right sided abd pain, hx of stones, vomiting/diarr;Abd pain COMPARISON: Abdomen Pelvis W Contrast dated 09/05/2017; Abdomen Pelvis W Contrast dated 05/16/2017 TECHNIQUE: CT of the abdomen and pelvis was performed. All CT scans are performed using dose optimization technique as appropriate and may include automated exposure control or mA/KV adjustment according to patient size. FINDINGS: Lower chest: New 11 mm right lower lobe pulmonary nodule. Liver: Intrahepatic biliary ductal dilatation is similar. No suspicious liver masses. Biliary: Cholecystectomy. Similar extrahepatic biliary ductal dilatation. Stomach: Surgical changes are present at the gastroesophageal junction and distal esophagus. Duodenum: No significant focal abnormality. Pancreas: Calcifications in the head of the pancreas consistent with sequela of chronic pancreatitis. Mild diffuse pancreatic duct dilatation, also unchanged. Spleen: No significant abnormality. Adrenal: No suspicious lesions. Kidney/ureter: Moderate right-sided hydronephrosis secondary to a 5 mm stone in the right distal uret er at the UVJ. Additional lower pole renal calculi noted in the right kidney. Atrophic left kidney. R enal cysts. Renal vascular calcifications also noted. Retroperitoneum: No retroperitoneal adenopathy. Vascular: Advanced atherosclerosis including involving the branch vessels. The infrarenal abdominal a melonie is mildly aneurysmal measuring approximately 3.3 cm. This is unchanged. The celiac and SMA are h eavily calcified as are the renal arteries. Bowel: No significant focal abnormality. Peritoneum: No ascites or free air. Bladder: Grossly unremarkable. Reproductive: Hysterectomy Bones: Chronic L2 compression fracture. No acute fractures are seen. Screws traverse the left femoral neck. Other: n/a IMPRESSION: Moderate right-sided hydroureteronephrosis secondary to a 5 mm stone at the right UVJ. New 11 mm right lower lobe pulmonary nodule. Recommend 3 month follow-up chest CT.
[2021-08-11] MEDS ORDERED: TAMSULOSIN 0.4 MG SR CAP ONE (12:07)
[2021-08-11] MEDS ORDERED: MAGNESIUM SULFATE 1 gm IVPB 1 GM/100 ML BAG IV ONE (12:07)
--- NOTE | 2021-08-11 14:18 | EDPHYS ---
Physician Documentation [facility] Name: Sumaya Starr Age: 86 yrs Sex: Female : 1935 Arrival Date: 08/11/2021 Time: 08:06 Bed 5 Private MD: Levi Patrick ED Physician Catrachito Perez HPI: 08/11 08:25 This 86 yrs old Female presents to ER via Wheelchair with complaints of General rn Weakness, right side pain, Vomiting. 08:25 The patient presents with abdominal pain right lower quadrant, Right flank. rn 08:26 Onset: The symptoms/episode began/occurred last night. The symptoms radiate to the rn right flank. Associated signs and symptoms: Pertinent positives: nausea and vomiting, diarrhea, Pertinent negatives: dysuria, fever, hematuria. The symptoms are described as achy. Modifying factors: The symptoms are alleviated by nothing, the symptoms are aggravated by touching the area. Severity of pain: At its worst the pain was moderate in the emergency department the pain is unchanged. The patient has experienced similar episodes in the past. The patient has not recently seen a physician. Patient reports right-sided abdominal and right flank pain, began last night, intermittent, associated with nausea/vomiting/diarrhea. No urinary symptoms. Does have a history of kidney stones. No trauma. Denies hematuria. Denies blood in the stool. No known sick contacts.. Historical: - Allergies: 08:24 Adhesives; yanez 08:24 Benicar; yanez 08:24 BETA-ADRENERGIC BLOCKING AGENTS; yanez 08:24 Demerol; yanez 08:24 Latex, Natural Rubber; yanez 08:24 Peanut; yanez - Home Meds: 08:24 hydrocodone-acetaminophen 5-325 mg Oral tab 1 tab every 4-6 hours [Active]; Lasix 20 mg yanez Oral tab 1 tab once daily [Active]; Klor-Con 10 10 mEq Oral TbER 1 tab once daily [Active]; - PMHx: 08:24 AAA; Anemia; Atrial Fib; GI Bleed; Glaucoma; Hypertension; kidney infection; macular yanez degeneration; UTI; Myocardial infarction; Chronic obstructive lung disease; Congestive heart failure; - Immunization history:: Adult Immunizations up to date. - Social history:: Smoking status: Patient reports the use of cigarette tobacco products, smokes one pack cigarettes per day. - Family history:: not pertinent. - Hospitalizations: : No recent hospitalization is reported. ROS: 08:26 Constitutional: Negative for fever, chills, and weight loss, Eyes: Negative for injury, rn pain, redness, and discharge, Neck: Negative for injury, pain, and swelling, Cardiovascular: Negative for chest pain, palpitations, and edema, Respiratory: Negative for shortness of breath, cough, wheezing, and pleuritic chest pain, Abdomen/GI: Positive for right-sided abdominal pain/nausea/vomiting/diarrhea Back: Positive for right flank pain : Negative for injury, bleeding, discharge, and swelling, MS/Extremity: Negative for injury and deformity, Skin: Negative for injury, rash, and discoloration, Neuro: Negative for headache, weakness, numbness, tingling, and seizure. Exam: 08:26 Constitutional: This is a well developed, well nourished patient who is awake, alert, rn and in no acute distress. Head/Face: Normocephalic, atraumatic. Eyes: Periorbital areas with no swelling, redness, or edema. ENT: Dry mucous membranes Cardiovascular: Regular rate and rhythm. No pulse deficits. Respiratory: No increased work of breathing, no retractions or nasal flaring. Abdomen/GI: Soft, mild right lower quadrant tenderness, no masses, no peritoneal signs Skin: Warm, dry MS/ Extremity: Pulses equal, no cyanosis. Neuro: Awake and alert, GCS 15 Vital Signs: 08:22 BP 191 / 84; Pulse 83; Resp 16; Temp 99; Pulse Ox 95% ; Weight 51.26 kg; Height 4 ft. yanez 11 in. (149.86 cm); 10:04 BP 168 / 81; Pulse 81; Resp 16; Temp 98.5; Pulse Ox 95% ; yanez 10:54 BP 166 / 74; Pulse 80; Resp 16; Pulse Ox 97% on R/A; yanez 12:25 BP 179 / 80; Pulse 79; Resp 16; Pulse Ox 95% on R/A; yanez 13:23 BP 179 / 69; Pulse 79; Resp 18; Pulse Ox 97% on R/A; yanez 15:57 BP 182 / 65; Pulse 92; Resp 16; Pulse Ox 93% on R/A; ap3 20:26 BP 145 / 63; Pulse 91; Resp 16 S; Pulse Ox 93% on 2 lpm NC; as6 08:22 Body Mass Index 22.82 (51.26 kg, 149.86 cm) yanez MDM: 08:08 Patient medically screened. rn 14:13 Differential diagnosis: diverticulitis, non-specific abd pain, Pyelonephritis, rn Ureterolithiasis, urinary tract infection. Data reviewed: vital signs, nurses notes, lab test result(s), radiologic studies, CT scan, and as a result, I will admit patient. Counseling: I had a detailed discussion with the patient and/or guardian regarding: the historical points, exam findings, and any diagnostic results supporting the discharge/admit diagnosis, lab results, radiology results, the need for further work-up and treatment in the hospital. Response to treatment: There is no appreciated change of the patient's symptoms at this time, and as a result, I will admit patient. Admission orders: after a detailed discussion of the patient's condition and case, the admit orders are written by me. ED course: Patient with 5 mm distal ureteral stone with mild to moderate hydro-. Has had multiple stones in the past. I do not feel like she is going to require intervention by urology, but pain is not controlled. Has had 3 doses of narcotic pain medication while here in addition to Flomax and magnesium and patient states pain is the same. Will observe to hospitalist, Dr. Cadet for pain management. 08/11 08:18 Order name: Basic Metabolic Panel 08/11 08:18 Order name: CBC with Diff; Complete Time: 10:49 08/11 08:18 Order name: Hepatic Function 08/11 08:18 Order name: Lipase 08/11 08:18 Order name: Urine Microscopic Only; Complete Time: 10:49 08/11 08:58 Order name: Urine Dipstick-Ancillary; Complete Time: 10:49 [facility] 08/11 09:37 Order name: Urine Culture [facility] 08/11 11:41 Order name: CREATININE WHOLE BLOOD; Complete Time: 11:57 [facility] 08/11 14:05 Order name: SARS-COV-2 RT PCR [facility] 08/11 17:57 Order name: CBC with Automated Diff [facility] 08/11 17:57 Order name: CBC with Automated Diff [facility] 08/11 17:57 Order name: Comprehensive Metabolic Panel [facility] 08/11 17:57 Order name: Comprehensive Metabolic Panel [facility] 08/11 08:18 Order name: IV Saline Lock; Complete Time: 09:01 rn 08/11 08:18 Order name: Labs collected and sent; Complete Time: 09: rn 08/11 08:18 Order name: Urine Dipstick-Ancillary (obtain specimen); Complete Time: 09:01 rn 08/11 08:18 Order name: CT Abd/Pelvis - IV Contrast Only; Complete Time: 11:57 rn 08/11 17:57 Order name: CONS Physician Consult [facility] 08/11 17:57 Order name: Renal [facility] 08/11 08:30 Order name: Cardiac monitoring; Complete Time: 08:50 rn Administered Medications: 08:50 Drug: Zofran (Ondansetron) 4 mg Route: IVP; Site: left antecubital; yanez 17:27 Follow up: Response: No adverse reaction yanez 08:50 Drug: NS 0.9% 500 ml Route: IV; Rate: bolus; Site: left antecubital; yanez 17:26 Follow up: IV Status: Completed infusion yanez 09:01 Drug: morphine 2 mg Route: IVP; Site: left antecubital; yanez 17:26 Follow up: Response: Pain is decreased yanez 12:25 Drug: Zofran (Ondansetron) 4 mg Route: IVP; Site: left antecubital; yanez 17:25 Follow up: Response: No adverse reaction yanez 12:26 Drug: Magnesium Sulfate 1 grams Route: IVPB; Infused Over: 1 hrs; Site: left yanez antecubital; 17:26 Follow up: Response: No adverse reaction; IV Status: Completed infusion yanez 12:26 Drug: Flomax (tamsulosin) 0.4 mg Route: PO; yanez 17:25 Follow up: Response: No adverse reaction yanez 12:26 Drug: morphine 2 mg Route: IVP; Site: left antecubital; yanez 17:25 Follow up: Response: Pain is decreased yanez 13:10 Drug: morphine 2 mg Route: IVP; Site: left antecubital; yanez 17:25 Follow up: Response: Pain is decreased yanez 14:32 Drug: Rocephin (cefTRIAXone) 1 grams Route: IV; Rate: calculated rate; Site: left yanez antecubital; 17:27 Follow up: Response: No adverse reaction yanez 17:27 Follow up: Response: No adverse reaction yanez 17:41 Follow up: Response: No adverse reaction; IV Status: Completed infusion yanez 15:49 Drug: Phenergan (promethazine) 12.5 mg Route: IVP; Site: left antecubital; yanez 18:58 Follow up: Response: No adverse reaction; Nausea is decreased [id number] Disposition Summary: 08/11/21 14:17 Hospitalization Ordered Hospitalization Status: Observation rn Provider: Natty Cadet rn Location: Telemetry/MedSurg (observation) rn Condition: Stable rn Problem: new rn Symptoms: are unchanged rn Bed/Room Type: Standard rn Room Assignment: 223(08/11/21 18:47) ss Diagnosis - Calculus of ureter rn - Other and unspecified hydronephrosis rn Forms: - Medication Reconciliation Form rn - SBAR form rn Signatures: Dispatcher [employer] EDMao Manzanares PA PA jmm Nieto, Roman, MD MD rn Smirch, Shelby, RN RN ss Rupinder Walker Jahala RN [id number] Corrections: (The following items were deleted from the chart) 15:35 14:05 SARS-COV-2 RT PCR+[id number].BRZ ordered. EDWI EDWI 18:47 14:17 rn ss
--- NOTE | 2021-08-11 14:18 | ER ---
Nurse's Notes [facility] Name: Sumaya Starr Age: 86 yrs Sex: Female : 1935 Arrival Date: 08/11/2021 Time: 08:06 Bed 5 Private MD: Levi Patrick Diagnosis: Calculus of ureter;Other and unspecified hydronephrosis Presentation: 08/11 08:22 Chief complaint: Patient states: right flank pain, abdominal pain, N/V/D. Coronavirus yanez screen: Vaccine status: Patient reports receiving the 2nd dose of the covid vaccine. Ebola Screen: Patient denies exposure to infectious person. Patient denies travel to an Ebola-affected area in the 21 days before illness onset. No symptoms or risks identified at this time. Initial Sepsis Screen: Does the patient meet any 2 criteria? No. Patient's initial sepsis screen is negative. Does the patient have a suspected source of infection? No. Patient's initial sepsis screen is negative. Risk Assessment: Do you want to hurt yourself or someone else? Patient reports no desire to harm self or others. Onset of symptoms was August 10, 2021. 08:22 Method Of Arrival: Wheelchair yanez 08:22 Acuity: MARY 3 yanez Triage Assessment: 08:24 General: Appears uncomfortable, Behavior is calm, cooperative. Pain: Complains of pain yanez in right lower quadrant. GI: Reports lower abdominal pain, cramping, diarrhea, nausea, Pain is 8 out of 10 on a pain scale. vomiting, since x1day. Historical: - Allergies: 08:24 Adhesives; yanez 08:24 Benicar; yanez 08:24 BETA-ADRENERGIC BLOCKING AGENTS; yanez 08:24 Demerol; yanez 08:24 Latex, Natural Rubber; yanez 08:24 Peanut; yanez - Home Meds: 08:24 hydrocodone-acetaminophen 5-325 mg Oral tab 1 tab every 4-6 hours [Active]; Lasix 20 mg yanez Oral tab 1 tab once daily [Active]; Klor-Con 10 10 mEq Oral TbER 1 tab once daily [Active]; - PMHx: 08:24 AAA; Anemia; Atrial Fib; GI Bleed; Glaucoma; Hypertension; kidney infection; macular yanez degeneration; UTI; Myocardial infarction; Chronic obstructive lung disease; Congestive heart failure; - Immunization history:: Adult Immunizations up to date. - Social history:: Smoking status: Patient reports the use of cigarette tobacco products, smokes one pack cigarettes per day. - Family history:: not pertinent. - Hospitalizations: : No recent hospitalization is reported. Screenin:28 Abuse screen: Denies threats or abuse. Denies injuries from another. Nutritional yanez screening: No deficits noted. Tuberculosis screening: No symptoms or risk factors identified. Fall Risk Fall in past 12 months (25 points). Secondary diagnosis (15 points) CVA, blindness. Assessment: 10:04 GI: Reports lower abdominal pain, diarrhea, nausea, vomiting. yanez 10:05 GI: Abdomen is non-distended. yanez 10:55 Pain: Pain currently is 5 out of 10 on a pain scale. yanez 15:38 Reassessment: Patient and/or family updated on plan of care and expected duration. Pain ap3 level reassessed. Patient is alert, oriented x 3, equal unlabored respirations, skin warm/dry/pink. patients daughter returned to bedside, patient states her pain has returned and would like another dose of pain medication. 20:30 Reassessment: pt SpO2 86% RA, place on oxygen 2 lpm via nc, SpO2 improved to 94%. as6 Vital Signs: 08:22 BP 191 / 84; Pulse 83; Resp 16; Temp 99; Pulse Ox 95% ; Weight 51.26 kg; Height 4 ft. yanez 11 in. (149.86 cm); 10:04 BP 168 / 81; Pulse 81; Resp 16; Temp 98.5; Pulse Ox 95% ; yanez 10:54 BP 166 / 74; Pulse 80; Resp 16; Pulse Ox 97% on R/A; yanez 12:25 BP 179 / 80; Pulse 79; Resp 16; Pulse Ox 95% on R/A; yanez 13:23 BP 179 / 69; Pulse 79; Resp 18; Pulse Ox 97% on R/A; yanez 15:57 BP 182 / 65; Pulse 92; Resp 16; Pulse Ox 93% on R/A; ap3 20:26 BP 145 / 63; Pulse 91; Resp 16 S; Pulse Ox 93% on 2 lpm NC; as6 08:22 Body Mass Index 22.82 (51.26 kg, 149.86 cm) yanez ED Course: 08:06 Patient arrived in ED. am2 08:06 Levi Patrikc MD is Private Physician. am2 08:08 Catrachito Perez MD is Attending Physician. rn 08:22 Rupinder Walker is Primary Nurse. yanez 08:24 Triage completed. yanez 08:24 Arm band placed on right wrist. yanez 08:28 Patient has correct armband on for positive identification. Bed in low position. Adult yanez w/ patient. 08:28 No provider procedures requiring assistance completed. yanez 09:01 Urine Microscopic Only Sent. yanez 09:01 Basic Metabolic Panel Sent. yanez 09:01 Hepatic Function Sent. yanez 09:01 Lipase Sent. yanez 09:02 Inserted saline lock: 20 gauge in left antecubital area, using aseptic technique. Blood yanez collected. 10:05 Inserted saline lock:. yanez 10:41 Urine Culture Sent. yanez 11:24 CT Abd/Pelvis - IV Contrast Only In Process Unspecified. EDMS 14:16 Natty Cadet MD is Hospitalizing Provider. rn 14:32 SARS-COV-2 RT PCR Sent. yanez 15:35 SARS-COV-2 RT PCR Sent. yanez 22:03 Patient admitted, IV remains in place. as6 Administered Medications: 08:50 Drug: Zofran (Ondansetron) 4 mg Route: IVP; Site: left antecubital; yanez 17:27 Follow up: Response: No adverse reaction yanez 08:50 Drug: NS 0.9% 500 ml Route: IV; Rate: bolus; Site: left antecubital; yanez 17:26 Follow up: IV Status: Completed infusion yanez 09: Drug: morphine 2 mg Route: IVP; Site: left antecubital; yanez 17:26 Follow up: Response: Pain is decreased yanez 12:25 Drug: Zofran (Ondansetron) 4 mg Route: IVP; Site: left antecubital; yanez 17:25 Follow up: Response: No adverse reaction yanez 12: Drug: Magnesium Sulfate 1 grams Route: IVPB; Infused Over: 1 hrs; Site: left yanez antecubital; 17:26 Follow up: Response: No adverse reaction; IV Status: Completed infusion yanez 12: Drug: Flomax (tamsulosin) 0.4 mg Route: PO; yanez 17:25 Follow up: Response: No adverse reaction yanez 12:26 Drug: morphine 2 mg Route: IVP; Site: left antecubital; yanez 17:25 Follow up: Response: Pain is decreased yanez 13:10 Drug: morphine 2 mg Route: IVP; Site: left antecubital; yanez 17:25 Follow up: Response: Pain is decreased yanez 14:32 Drug: Rocephin (cefTRIAXone) 1 grams Route: IV; Rate: calculated rate; Site: left yanez antecubital; 17:27 Follow up: Response: No adverse reaction yanez 17:27 Follow up: Response: No adverse reaction yanez 17:41 Follow up: Response: No adverse reaction; IV Status: Completed infusion yanez 15:49 Drug: Phenergan (promethazine) 12.5 mg Route: IVP; Site: left antecubital; yanez 18:58 Follow up: Response: No adverse reaction; Nausea is decreased jl7 Outcome: 14:17 Decision to Hospitalize by Provider. rn 22:03 Admitted to Med/surg accompanied by nurse, via stretcher, room 223, with chart, Report as6 called to elda rn 22:03 Condition: stable 22:04 Patient left the ED. as6 Signatures: Dispatcher [employer] EDMS Catrachito Perez MD MD rn Leal, Jahala RN RN jl7 Sarah Corrales Amanda, RN RN ap3 Pj Mcintosh RN RN as6 RosalinaStagerRupinder Corrections: (The following items were deleted from the chart) 15:35 15:35 SARS-COV-2 RT PCR+[id number].LAB.BRZ drawn and sent. beau MURRAYWI
[2021-08-11 14:21] LABS: Albumin 3.2 g/dL (3.4-5.0); Bilirubin Direct 0.1 mg/dL (0-0.2); Potassium 3.8 mmol/L (3.5-5.1); Protein, Total 7.2 g/dL (6.4-8.2)
[2021-08-11] MEDS ORDERED: CEFTRIAXONE 1000 MG/VIAL ONE (14:34)
[2021-08-11 14:35] LABS: Bilirubin Total 0.3 mg/dL (0.2-1.0)
[2021-08-11] MEDS ORDERED: FENTANYL CITR 100 MCG/2 ML ONE (15:43)
[2021-08-11] MEDS ORDERED: PROMETHAZINE INJ 25 MG/ML AMP ONE (15:47)
[2021-08-11] MEDS ORDERED: ONDANSETRON 4 MG/2 ML VIAL IV PRN (17:46)
[2021-08-11] MEDS ORDERED: ACETAMINOPHEN 500 MG TAB PO PRN (17:46)
[2021-08-11] MEDS ORDERED: FUROSEMIDE 20 MG/ 2ML VIAL IV ONE (18:00)
[2021-08-11] MEDS: D5W 1,000 ML with NA BICARB 8.4% 50 MEQ IV SCH ×2 (18:00)
[2021-08-11] MEDS ORDERED: AMLODIPINE 5 MG TAB PO ONE (18:00)
[2021-08-11 21:16] VITALS: BMI 22.8
[2021-08-11] MEDS: MORPHINE 2 MG/ML SYR IV PRN (22:01)
--- NOTE | 2021-08-12 00:46 | P.HP ---
Certification for Inpatient Patient admitted to: Inpatient With expected LOS: >2 Midnights Patient will require the following post-hospital care: None Practitioner: I am a practitioner with admitting privileges, knowledge of patient current condition, hospital course, and medical plan of care. Services: Services provided to patient in accordance with Admission requirements found in Title 42 Section 412.3 of the Code of Federal Regulations Patient History Date of Service: 08/11/21 Reason for admission: Nephrolithiasis with UVJ stone/obstruction with right hydronephrosis History of Present Illness: Patient is an 86-year-old female who came into the hospital with flank tenderness pain on the right side and her pain was progressively worsening. She has a significant history of Coronary artery disease. She had a right Coronary artery stent placed in May. She is on anti-platelet therapy for this. She also has a AAA repair. In the hospital patient's workup revealed nephrolithiasis. She had a 5 mm kidney stone in the UVJ. There was also a right-sided hydronephrosis. Spoke to Urology who recommended fluids and pain control. Will monitor to see patient passes the stone. Hopefully her pain improves and can discharge over the next 24-48 hr. Monitor cardiac status and will get Cardiology consultation in anticipation of possible cystoscopy. Allergies olmesartan [From Benicar] Allergy (Unknown, Verified 01/09/19 22:34) Anaphylaxis peanut Allergy (Unknown, Verified 01/09/19 22:34) Anaphylaxis Beta-Blockers (Beta-Adrenergic Bloc Allergy (Verified 01/09/19 22:34) Anaphylaxis brinzolamide [From Simbrinza] Allergy (Verified 01/09/19 23:16) Shortness of breath latex Allergy (Verified 01/09/19 22:34) Hives methazolamide Allergy (Verified 01/10/19 01:17) Hives/Rash adhesive tape Adverse Reaction (Verified 01/09/19 22:34) red raw skin Home Medications: Bimatoprost [Lumigan] 1 drop EACH EYE BID 01/10/19 Citalopram [Celexa*] 1 tab PO DAILY 01/10/19 Furosemide [Lasix] 1 tab PO DAILY 01/10/19 Melatonin 10 mg PO BEDTIME 01/10/19 Netarsudil Mesylate [Rhopressa] 1 drop EACH EYE SEECOM 01/10/19 Ondansetron HCl [Zofran] 1 tab PO Q6H PRN 01/10/19 Polyethylene Glycol 3350 [Miralax] 17 gm PO DAILY 01/10/19 Potassium Chloride [Klor-Con 10] 1 tab PO BEDTIME 01/10/19 Rivaroxaban [Xarelto] 1 tab PO DAILY 01/10/19 clonazePAM [Clonazepam] 1 tab PO BEDTIME 01/10/19 clonazePAM [Klonopin] 1 tab PO BID PRN 01/10/19 Losartan Potassium [Cozaar] 25 mg PO DAILY 01/15/19 Hydrocodone 5/APAP 325 [[place] 5/325*] 1 tab PO Q4H PRN tab 01/18/19 Nicotine [Nicoderm*] 14 mg TD DAILY #15 patch.td24 01/18/19 - Past Medical/Surgical History Has patient received pneumonia vaccine in the past: Yes Diabetic: No -: Atrial fibrillation -: Hypertension -: Hyperlipidemia -: Carotid arterial disease -: Peripheral vascular disease -: History of AAA repair -: History of right carotid enterectomy -: History of right facial paralysis -: Glaucoma/macular degeneration -: History of peptic ulcers/GERD -: 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 She does not work. - Family History Mother Medical History: Heart disease Notes: from heart attack Father Medical History: Other (see notes) Notes: from bursted aneurism - Social History Smoking Status: Former smoker Alcohol use: No CD- Drugs: No Caffeine use: Yes Review of Systems 10-point ROS is otherwise unremarkable Physical Examination - Vital Signs Temperature: 97.4 F Blood Pressure: 117/54 Pulse: 82 Respirations: 17 Pulse Ox (%): 96 - Physical Exam General: Alert, In no apparent distress HEENT: Atraumatic, PERRLA, Mucous membr. moist/pink, EOMI, Sclerae nonicteric Neck: Supple, 2+ carotid pulse no bruit, No LAD, Without JVD or thyroid abnormality Respiratory: Clear to auscultation bilaterally, Normal air movement Cardiovascular: Regular rate/rhythm, Normal S1 S2, Systolic murmur Gastrointestinal: Normal bowel sounds, Soft and benign, No rebound, No guarding, Tenderness (Right-sided flank tenderness) Musculoskeletal: No clubbing, No swelling, No tenderness Integumentary: No rashes Neurological: Normal gait, Normal speech, Normal strength at 5/5 x4 extr, Normal tone, Sensation intact, Cranial nerves 3-12 intact, Normal affect, Abnormal gait Lymphatics: No axilla or inguinal lymphadenopathy - Studies Laboratory Data (last 24 hrs) 08/11/21 08:45: WBC 7.40, Hgb 11.4 L, Hct 33.8 L, Plt Count 191 08/11/21 08:45: Sodium 140, Potassium 3.8, BUN 15, Creatinine 1.03, Glucose 125 H, Total Bilirubin 0.3, AST 15, ALT 11 L, Alkaline Phosphatase 151 H, Lipase 69 L Assessment & Plan - Problems (Diagnosis) (1) Calculus of ureterovesical junction (UVJ) Current Visit: Yes Status: Acute (2) Ureterovesical junction (UVJ) obstruction Current Visit: Yes Status: Acute (3) Nephrolithiasis Current Visit: Yes Status: Acute (4) CAD (coronary artery disease) Current Visit: Yes Status: Acute (5) Atrial fibrillation Onset Date: 10/27/16 Current Visit: No Status: Chronic Qualifiers: (6) Carotid arterial disease Onset Date: 10/27/16 Current Visit: No Status: Chronic Qualifiers: (7) Chronic interstitial lung disease Current Visit: No Status: Chronic (8) Facial paralysis on right side Onset Date: 10/27/16 Current Visit: No Status: Chronic (9) GERD (gastroesophageal reflux disease) Onset Date: 10/27/16 Current Visit: No Status: Chronic Qualifiers: (10) Hyperlipidemia Onset Date: 10/27/16 Current Visit: No Status: Chronic Qualifiers: (11) Hypertension Onset Date: 10/27/16 Current Visit: No Status: Chronic - Plan Plan: 1. Continue with IV hydration 2. Continue with diuretics 3. Continue anti-platelet regimen 4. Cardiology consultation for cardiac clearance along with Urology consultation for possible cystoscopy 5. Continue with pain control 6. Monitor renal function 7. Continue with amlodipine and Lasix for blood pressure control 8. GI and DVT prophylaxis Discharge Plan: Home Plan to discharge in: Greater than 2 days - Advance Directives Does patient have a Living Will: No Does patient have a Durable POA for Healthcare: No - Code Status/Comfort Care Code Status Assessed: Yes Code Status: Full Code Critical Care: No Time Spent Managing PTS Care (In Minutes): 35
[2021-08-12] MEDS: MORPHINE 2 MG/ML SYR IV PRN ×3 (04:57→20:48)
[2021-08-12 06:16] LABS: Absolute Lymphocytes (CBC) 0.9 K/uL (0.7-4.9); Basophils % 0.8 % (0-1.3); Hematocrit 31.2 % (36.0-45.0); Lymphocytes % 12.4 % (15.3-44.8); MPV 7.1 fL (7.6-11.3); RBC Red Blood Cell Count 3.59 M/uL (3.86-4.86)
[2021-08-12 06:31] LABS: Albumin 2.6 g/dL (3.4-5.0); Potassium 3.5 mmol/L (3.5-5.1)
[2021-08-12 06:34] LABS: Bilirubin Total 0.3 mg/dL (0.2-1.0); Protein, Total 6.3 g/dL (6.4-8.2)
[2021-08-12] MEDS ORDERED: ONDANSETRON 4 MG (ODT) TAB PO PRN (06:36)
[2021-08-12] MEDS ORDERED: CEFTRIAXONE 1000 MG/VIAL ONE (07:56)
[2021-08-12] MEDS ORDERED: NA CHLORIDE 0.9% 100 ML ONE (07:57)
[2021-08-12] MEDS: LOSARTAN POTASSIUM 50 MG TABLET PO SCH (09:00)
[2021-08-12] MEDS: POLYETHYL GLY 3350 17 GM/DOSE PO SCH ×2 (09:00→09:03)
[2021-08-12] MEDS: BIMATOPROST 0.01% OPTH SCH ×2 (09:00→21:00)
[2021-08-12] MEDS: CEFTRIAXONE 1,000 MG in NA CHLORIDE 0.9% 50 ML IVPB SCH (09:03)
[2021-08-12] MEDS: AMLODIPINE 2.5 MG TAB PO SCH (09:04)
[2021-08-12] MEDS: CITALOPRAM 10 MG TABLET PO SCH (09:05)
[2021-08-12] MEDS: FUROSEMIDE 20 MG TABLET PO SCH (09:05)
[2021-08-12] MEDS: NICOTINE 14 MG/PAT TD SCH (09:07)
--- NOTE | 2021-08-12 10:58 | P.PN ---
Subjective Date of Service: 08/12/21 Chief Complaint: Nephrolithiasis with UVJ stone/obstruction with right hydronephrosis Subjective: No new changes Seen today, denies any new complaint Anxiously awaiting urology evaluation Daughter at bedside discussed with Review of Systems 10-point ROS is otherwise unremarkable Physical Examination - Vital Signs Temperature: 97.7 F Blood Pressure: 135/69 Pulse: 92 Respirations: 18 Pulse Ox (%): 91 - Physical Exam General: Alert, In no apparent distress, Oriented x3 HEENT: Atraumatic, Normocephalic, PERRLA Neck: 2+ carotid pulse no bruit, JVD not distended Respiratory: Clear to auscultation bilaterally, Normal air movement Cardiovascular: Normal pulses, Regular rate/rhythm, Normal S1 S2 Gastrointestinal: Normal bowel sounds, Hypoactive, Soft and benign Neurological: Normal gait, Normal speech, Normal strength at 5/5 x4 extr - Studies Laboratory Data (last 24 hrs) 08/11/21 08:45: Sodium 140, Potassium 3.8, BUN 15, Creatinine 1.03, Glucose 125 H, Total Bilirubin 0.3, AST 15, ALT 11 L, Alkaline Phosphatase 151 H, Lipase 69 L Assessment And Plan - Current Problems (Diagnosis) (1) CAD (coronary artery disease) Current Visit: Yes Status: Acute (2) Calculus of ureterovesical junction (UVJ) Current Visit: Yes Status: Acute (3) Nephrolithiasis Current Visit: Yes Status: Acute (4) Ureterovesical junction (UVJ) obstruction Current Visit: Yes Status: Acute (5) Hypertension Onset Date: 10/27/16 Current Visit: No Status: Chronic - Plan We will consult urology Continue gentle hydration Doubt spontaneous passage of renal calculus Renal function remains stable Continue blood pressure regimen, blood pressure is controlled at this time Given recent PCI x 2 months, cardiology clearance for possible cystoscopy and ureteral stent placement Continue DVT prophylaxis Continue pain regimen control
[2021-08-12] MEDS: DILTIAZEM HCL 60 MG TAB PO SCH ×2 (13:35→20:48)
[2021-08-12] MEDS: PRASUGREL (EFFIENT) 10 MG TAB PO SCH (13:36)
[2021-08-12] MEDS ORDERED: DILTIAZEM HCL 125 MG/25 ML VIAL IVP ONE (14:45)
[2021-08-12] MEDS: D5W 1,000 ML with NA BICARB 8.4% 50 MEQ IV SCH ×4 (14:52→15:00)
--- NOTE | 2021-08-12 15:50 | CON ---
Date of Consultation: 08/12/2021 Reason For Consultation: Cardiac clearance for renal stent placement for kidney stone. History Of Present Illness: This is an 86-year-old female with known history of coronary artery dise ase, status post cardiac stent placement at [facility] back in May to the [facility], presented with flank pain, found to have obstructing stone and the plan for cystoscopy and stent placement. Hence, cardi ac clearance was requested to evaluate her by bedside. She was anxious and she was in atrial fibrill ation with rapid ventricular response. She received a dose of Cardizem by mouth. The patient is hav ing mild chest pressure with that. Past Medical History: Coronary artery disease, atrial fibrillation, hypertension, dyslipidemia, glory pheral vascular disease, AAA status post repair, carotid stenosis status post endarterectomy. Medications: Refer reconciliation sheet for detailed list. Allergies: ALLERGY LIST WAS REVIEWED. Past Surgical History: AAA repair, carotid endarterectomy. Family History: No mention of coronary disease cancer. Social History: Does not smoke or drink. Does not use any drugs. Review of Systems: All systems reviewed and they are negative except for mentioned in the HPI. Physical Examination: Vital Signs: Reviewed. Head and Neck: Pupils are equal, reactive to light. Intact eye movements. No JVD. No cervical lym phadenopathy. Neck: Supple. Thyroid is not enlarged. Lungs: Clear to auscultation bilaterally. No rhonchi, rales, or crackles. No accessory muscle use. Heart: Irregularly irregular. No extra sounds. Abdomen: Soft, nontender. Bowel sounds positive. No organomegaly. No masses or hernia. No rigidi ty or rebound. Extremities: No clubbing or cyanosis. Intact pulses. Skin: No rashes. Neurologic: Alert, awake, and oriented x3. No acute focal deficits appreciated. Investigations: Hemoglobin 10.4, creatinine 0.95. Assessment And Recommendations: 1.Atrial fibrillation with rapid ventricular response, try Cardizem IV. The patient reported to be allergic to beta blockers because she gets severe bronchospasm with that. At this point, can use Car dizem intravenously 5 mg every 1 hour as needed. If she is not getting better on that, then I recomm end amiodarone drip intravenously to load 150 mg over 10 minutes and then 1 mg/minute for 6 hours and then 0.5 mg/minute for 16 hours. The patient is not a candidate for anticoagulation due to severe b leeding in the past. 2.Coronary artery disease, status post recent stent about 2 months ago. Please obtain echocardiogra m to evaluate for any wall motion abnormalities and continue home medications, specifically Effient a nd aspirin without interruption. 3.Preop evaluation. This patient is at least at moderate cardiac risk. Please obtain echocardiogra m before surgery and the procedure can be done without stopping the Effient. That will be the ideal situation as the patient is definitely at risk for stent thrombosis if she stops the Effient. Thank you for the consult. /SHANNON Voice ID: [id number] Report ID: [id number]
[2021-08-12] MEDS: clonazePAM 1 MG TAB PO PRN (16:34)
[2021-08-12] MEDS ORDERED: AMIODARONE HCL 150 MG in D5W 100 ML IV STA (17:52)
[2021-08-12] MEDS ORDERED: AMIODARONE HCL 900 MG in Dextrose 5%-Water 482 ML IV SCH (18:00)
[2021-08-12] MEDS ORDERED: METOPROLOL TAR 25 MG TAB PO SCH (18:00)
[2021-08-12] MEDS: HYDROCODONE/APAP 5/325 MG TAB PO PRN (18:02)
[2021-08-12] MEDS ORDERED: clonazePAM 1 MG TAB ONE (19:45)
[2021-08-12] MEDS ORDERED: MELATONIN 5 MG TABLET PO ONE (19:45)
[2021-08-12] MEDS ORDERED: POTASSIUM CL SA 10 MEQ TAB PO ONE (19:45)
[2021-08-12] MEDS ORDERED: MORPHINE 2 MG/ML SYR ONE (20:43)
[2021-08-12] MEDS ORDERED: clonazePAM 1 MG TAB PO SCH (21:00)
[2021-08-12] MEDS ORDERED: MELATONIN 5 MG TABLET PO SCH (21:00)
[2021-08-12] MEDS ORDERED: POTASSIUM CL SA 10 MEQ TAB PO SCH (21:00)
[2021-08-12] MEDS ORDERED: Netarsudil Mesylate [Rhopressa] 2.5 ML Drops OPTH SCH (21:00)
[2021-08-13] MEDS ORDERED: HYDROCODONE/APAP 5/325 MG TAB ONE ×2 (00:26→08:40)
[2021-08-13] MEDS: HYDROCODONE/APAP 5/325 MG TAB PO PRN ×2 (00:27→08:40)
[2021-08-13] MEDS: D5W 1,000 ML with NA BICARB 8.4% 50 MEQ IV SCH ×2 (02:44)
[2021-08-13 04:31] LABS: Absolute Lymphocytes (CBC) 0.9 K/uL (0.7-4.9); Basophils % 1.1 % (0-1.3); Lymphocytes % 18.3 % (15.3-44.8); RBC Red Blood Cell Count 3.21 M/uL (3.86-4.86)
[2021-08-13 04:43] LABS: Albumin 2.2 g/dL (3.4-5.0); Bilirubin Total 0.2 mg/dL (0.2-1.0); Potassium 3.1 mmol/L (3.5-5.1); Protein, Total 5.8 g/dL (6.4-8.2)
[2021-08-13] MEDS ORDERED: PRASUGREL (EFFIENT) 10 MG TAB ONE (08:24)
[2021-08-13] MEDS ORDERED: LOSARTAN POTASSIUM 50 MG TABLET ONE (08:24)
[2021-08-13] MEDS ORDERED: FUROSEMIDE 20 MG TABLET ONE (08:24)
[2021-08-13] MEDS ORDERED: AMLODIPINE 5 MG TAB ONE (08:24)
[2021-08-13] MEDS: FUROSEMIDE 20 MG TABLET PO SCH (08:28)
[2021-08-13] MEDS: LOSARTAN POTASSIUM 50 MG TABLET PO SCH (08:28)
[2021-08-13] MEDS: PRASUGREL (EFFIENT) 10 MG TAB PO SCH (08:29)
[2021-08-13] MEDS: DILTIAZEM HCL 60 MG TAB PO SCH (08:29)
[2021-08-13] MEDS: BIMATOPROST 0.01% OPTH SCH (08:30)
[2021-08-13] MEDS ORDERED: NA CHLORIDE 0.9% 50 ML ONE (08:31)
[2021-08-13] MEDS ORDERED: CEFTRIAXONE 1000 MG/VIAL ONE (08:31)
[2021-08-13] MEDS: CEFTRIAXONE 1,000 MG in NA CHLORIDE 0.9% 50 ML IVPB SCH (08:31)
--- NOTE | 2021-08-13 09:05 | RAD REPORT ---
EXAM DESCRIPTION: US - Renal Ultrasound-Complete - 08/13/2021 7:24 am CLINICAL HISTORY: rule out kidney stone Flank pain COMPARISON: No comparisons FINDINGS: There is significant cortical thinning involving the left kidney. Otherwise, both kidneys have a normal appearance. The right kidney measures 9.9 x 5.6 x 3.8 cm. No hydronephrosis, focal mass or perinephric fluid. The left kidney measures 8.7 x 4.6 x 4.0 cm. No hydronephrosis, focal mass or perinephric fluid. The urinary bladder is incompletely distended without gross abnormality seen. IMPRESSION: Cortical thinning of the left kidney is seen, otherwise negative study.
[2021-08-13] MEDS: POLYETHYL GLY 3350 17 GM/DOSE PO SCH (09:59)
--- NOTE | 2021-08-13 10:20 | EKG ---
Test Date: 2021-08-12 Test Time: 20:36:21 Door Paneler: RT-O MEASUREMENT RESULTS: Intervals: Rate: 95 ME: 162 QRSD: 52 QT: 342 QTc: 429 [place]: P: 59 ME: 162 QRS: 77 T: 68 INTERPRETIVE STATEMENTS: Sinus rhythm with premature supraventricular complexes Septal infarct, age undetermined Abnormal ECG Compared to ECG 08/12/2021 13:56:55 Atrial premature complex(es) now present Myocardial infarct finding now present Atrial fibrillation no longer present ST (T wave) deviation no longer present Possible ischemia no longer present Electronically Signed On 08-13-21 10:19:32 JUNIOR DESIGNER by Azar Carrizales
[2021-08-13] MEDS: CITALOPRAM 10 MG TABLET PO SCH (11:51)
[2021-08-13] MEDS: NICOTINE 14 MG/PAT TD SCH (11:51)
--- NOTE | 2021-08-13 11:55 | ECHO ---
HEIGHT: 4 ft 11 in WEIGHT: 113 lb 0.8 oz DATE OF STUDY: 08/13/[address]: Porfirio Ramos 2-DIMENSIONAL: YES M.MODE: YES DOPPLER: YES COLOR FLOW: YES TDS: NO PORTABLE: NO DEFINITY: NO BUBBLE STUDY: NO DIAGNOSIS: CORONARY ARTERY DISEASE CARDIAC HISTORY: CATHERIZATION: SURGERY: PROSTHETIC VALVE: PACEMAKER: MEASUREMENTS (cm) DIASTOLIC (NORMALS) SYSTOLIC (NORMALS) IVSd 1.0 (0.6-1.2) LA Diam 3.3 (1.9-4.0) LVEF 69% LVIDd 2.9 (3.5-5.7) LVIDs 1.8 (2.0-3.5) %FS 38% LVPWd 1.0 (0.6-1.2) Ao Diam 2.8 (2.0-3.7) 2 DIMENSIONAL ASSESSMENT: RIGHT ATRIUM: NORMAL LEFT ATRIUM: NORMAL RIGHT VENTRICLE: NORMAL LEFT VENTRICLE: NORMAL TRICUSPID VALVE: NORMAL MITRAL VALVE: MITRAL ANNULAR CALCIFICATION PULMONIC VALVE: NORMAL AORTIC VALVE: SCLEROSIS PERICARDIAL EFFUSION: NONE AORTIC ROOT: NORMAL LEFT VENTRICULAR WALL MOTION: NORMAL DOPPLER/COLOR FLOW: NORMAL COMMENTS: MITRAL ANNULAR CALCIFICATION. AORTIC SCLEROSIS WITH NO STENOSIS. NORMAL LEFT VENTRICULAR SIZE AND FUNCTION. NO EFFUSION. NORMAL LEFT ATRIAL SIZE. TECHNOLOGIST: Kyra MCCLENDON
[2021-08-13] MEDS: AMLODIPINE 2.5 MG TAB PO SCH (12:15)
[2021-08-13] MEDS ORDERED: clonazePAM 1 MG TAB ONE (12:21)
[2021-08-13] MEDS: clonazePAM 1 MG TAB PO PRN (12:21)
[2021-08-13 12:33] VITALS: TEMP 98.2
[2021-08-13 14:37] VITALS: O2SAT 96
--- NOTE | 2021-08-13 15:00 | P.DS ---
Admission Date: 08/11/21 Discharge Date: 08/13/21 Disposition: ROUTINE DISCHARGE Discharge Condition: FAIR Reason for Admission: Nephrolithiasis with UVJ stone/obstruction with right hydronephrosis - Problems (1) CAD (coronary artery disease) Current Visit: Yes Status: Acute (2) Calculus of ureterovesical junction (UVJ) Current Visit: Yes Status: Acute (3) Nephrolithiasis Current Visit: Yes Status: Acute (4) Ureterovesical junction (UVJ) obstruction Current Visit: Yes Status: Acute (5) Hypertension Onset Date: 10/27/16 Current Visit: No Status: Chronic Brief History of Present Illness: History of Present Illness: Patient is an 86-year-old female who came into the hospital with flank tenderness pain on the right side and her pain was progressively worsening. She has a significant history of Coronary artery disease. She had a right Coronary artery stent placed in May. She is on anti-platelet therapy for this. She also has a AAA repair. In the hospital patient's workup revealed nephrolithiasis. She had a 5 mm kidney stone in the UVJ. There was also a right-sided hydronephrosis. Spoke to Urology who recommended fluids and pain control. Will monitor to see patient passes the stone. Hopefully her pain improves and can discharge over the next 24-48 hr. Monitor cardiac status and will get Cardiology consultation in anticipation of possible cystoscopy. Allergies olmesartan [From Benicar] Allergy (Unknown, Verified 01/09/19 22:34) Anaphylaxis peanut Allergy (Unknown, Verified 01/09/19 22:34) Anaphylaxis Beta-Blockers (Beta-Adrenergic Bloc Allergy (Verified 01/09/19 22:34) Anaphylaxis brinzolamide [From Simbrinza] Allergy (Verified 01/09/19 23:16) Shortness of breath latex Allergy (Verified 01/09/19 22:34) Hives methazolamide Allergy (Verified 01/10/19 01:17) Hives/Rash adhesive tape Adverse Reaction (Verified 01/09/19 22:34) red raw skin Hospital Course: Patient with history of Atrial fibrillation, HTN admitted for right flank pain associated with right UVP junction calculus causing hydronephrosis. She was evaluated by urology and decision for cystoscopy if patient does not pass stone. Patient developed worsening of her A. fib with RVR. She was previously unable to tolerate metoprolol as per history, IV amiodarone was initiated and the patient converted to normal sinus rhythm. Patient spontaneously passed a stone. Repeat renal sonogram shows resolution of right hydronephrosis. Urology intervention was canceled. Cardiology evaluation was done and patient was added Cardizem. Patient's urine grew strep pneumonia that is pansensitive and she was started on Levaquin. She was elevated by PT and was ambulatory with with minimal assist. She was discharged home today to complete course of antibiotics for 10 days Vital Signs/Physical Exam: Temp Pulse Resp BP Pulse Ox 98.2 F 79 16 157/62 H 94 08/13/21 11:00 08/13/21 14:00 08/13/21 14:00 08/13/21 14:00 08/13/21 14:00 General: Alert, In no apparent distress, Oriented x3 HEENT: Atraumatic, Normocephalic, PERRLA Neck: Supple, 2+ carotid pulse no bruit, JVD not distended Respiratory: Clear to auscultation bilaterally, Normal air movement Cardiovascular: No edema, Normal pulses, Regular rate/rhythm Gastrointestinal: Normal bowel sounds, Soft and benign, Non-distended Musculoskeletal: No clubbing, No swelling Neurological: Normal gait, Normal speech, Normal strength at 5/5 x4 extr Laboratory Data at Discharge: WBC 5.10 K/uL (4.3-10.9) D 08/13/21 04:16 Hgb 9.3 g/dL (12.0-15.0) L 08/13/21 04:16 Hct 28.0 % (36.0-45.0) L 08/13/21 04:16 Plt Count 149 K/uL (152-406) L 08/13/21 04:16 Sodium 138 mmol/L (136-145) 08/13/21 04:16 Potassium 3.1 mmol/L (3.5-5.1) L 08/13/21 04:16 BUN 11 mg/dL (7-18) 08/13/21 04:16 Creatinine 0.92 mg/dL (0.55-1.3) 08/13/21 04:16 Glucose 115 mg/dL (74-106) H 08/13/21 04:16 Total Bilirubin 0.2 mg/dL (0.2-1.0) 08/13/21 04:16 AST 13 U/L (15-37) L 08/13/21 04:16 ALT 10 U/L (12-78) L 08/13/21 04:16 Alkaline Phosphatase 111 U/L (45-117) 08/13/21 04:16 Lipase 69 U/L (73-393) L 08/11/21 08:45 Home Medications: Furosemide [Lasix] 1 tab PO DAILY 01/10/19 Ondansetron HCl [Zofran] 1 tab PO Q6H PRN 01/10/19 clonazePAM [Clonazepam] 1 tab PO BEDTIME 01/10/19 clonazePAM [Klonopin] 1 tab PO BID PRN 01/10/19 Hydrocodone 5/APAP 325 [[place] 5/325*] 1 tab PO Q4H PRN tab 01/18/19 Aspirin 1 tab PO DAILY 08/12/21 Famotidine [Pepcid AC] 1 tab PO DAILY 08/12/21 Netarsudil Mesylat/Latanoprost [Rocklatan 0.02%-0.005% Eye Drp] 1 gtt EACH EYE SEECOM 08/12/21 Pantoprazole [Protonix Tab*] 1 tab PO SEECOM 08/12/21 Prasugrel Hydrochloride [Effient*] 1 tab PO DAILY 08/12/21 Diltiazem Cd [Cardizem Cd] 180 mg PO DAILY #30 cap 08/13/21 Levofloxacin [Levaquin] 250 mg PO DAILY #5 tablet 08/13/21 Potassium Citrate [Urocit-K] 15 meq PO DAILY #30 tablet.er 08/13/21 New Medications: Diltiazem Cd [Cardizem Cd] 180 mg PO DAILY #30 cap Levofloxacin [Levaquin] 250 mg PO DAILY #5 tablet Potassium Citrate [Urocit-K] 15 meq PO DAILY #30 tablet.er Followup: Levi Patrick MD [Primary Care Provider] -
[2021-08-13 16:15] VITALS: BP 135/75
[2021-08-14] MEDS ORDERED: DILTIAZEM HCL 180 MG SR CAP PO SCH (09:00)
== END 2021-08-13 16:00 | disposition home or self-care (01) | DRG 694 ==
LOC: ER 08:04 → ERHOLD 17:47 → 2ND 21:04 → OBSVTOIN 21:41 → ERHOLD 08-12 18:30
PROVIDERS: ADMIT Hospitalist; ATTEND Internal Medicine
DX: N13.2 Hydronephrosis with renal and ureteral calculous obstruction (principal); I48.20 Chronic atrial fibrillation, unspecified; J84.9 Interstitial pulmonary disease, unspecified; I10 Essential (primary) hypertension; G51.0 Bell's palsy; E78.5 Hyperlipidemia, unspecified; K21.9 Gastro-esophageal reflux disease without esophagitis; I77.9 Disorder of arteries and arterioles, unspecified; I25.10 Atherosclerotic heart disease of native coronary artery without angina pectoris; Z88.5 Allergy status to narcotic agent; Z91.010 Allergy to peanuts; Z88.8 Allergy status to other drugs, medicaments and biological substances; Z91.040 Latex allergy status; Z95.5 Presence of coronary angioplasty implant and graft; Z91.048 Other nonmedicinal substance allergy status; Z79.899 Other long term (current) drug therapy; Z90.710 Acquired absence of both cervix and uterus; Z90.49 Acquired absence of other specified parts of digestive tract; Z87.891 Personal history of nicotine dependence; Z20.822 Contact with and (suspected) exposure to COVID-19
CPT/HCPCS: 36415; 74177; 76770; 80048; 80053; 80076; 81003; 81015; 82565; 83690; 85025; 87077; 87086; 87088; 87186; 93005; 93306; 96361; 96365; 96366; 96375; 97116; 97161; 97530; 99285; G0378; J0282; J2270; J2405; J2550; J3010; J3475; J7040; J7060; Q9967; U0003